=== PATIENT | female | born 1945 | race Caucasian/White ===

== ENCOUNTER 2020-04-13 12:36 | Outpatient (CLI) | payer MEDICARE, SELFPAY ==
--- NOTE | 2020-04-14 09:38 | WPDNEUROLOGY ---
Neurology EEG Report General Information Date of Study: 04/13/20 TEST eeg DIAGNOSIS memory loss CONDITION OF RECORDING awake and drowsy EEG NUMBER [id number] CLINICAL HISTORY memory loss EEG DESCRIPTION Basic resting occipital frequency consists of small amount of poorly organized low voltage 8 to 9 hertz per second alpha admixed with a large amount of low to medium voltage 6 to 7 hertz per second theta. During drowsiness low-voltage beta activity seen diffusely admixed with waxing and waning theta activity. multiple movement artifacts seen hyperventilation not done photic stimulation produced poorbuild up. non paroxysmal. Nonfocal. Nonlateralizing. IMPRESSION Abnormal record due to the presence of excessive amount of theta activity considering the age and the clinical symptomatology EEG abnormalities could be consistent with diagnosis of organic a metabolic encephalopathy or neuro degenerative process .clinical correlation recommended
== END 2020-04-13 12:37 | disposition home or self-care (01) ==
PROVIDERS: PCP Family Medicine; Visit Provider Psychiatry & Neurology Neurology
DX: R41.3 Other amnesia (principal); R94.01 Abnormal electroencephalogram [EEG]
CPT/HCPCS: 95816

== ENCOUNTER 2021-03-12 11:13 | Outpatient (CLI) | payer MEDICARE, SELFPAY ==
[2021-03-12 12:13] LABS: Alanine Aminotransferase 136 U/L (14-59); Albumin Level 3.9 g/dL (3.4-5.0); Alkaline Phosphatase 73 U/L (46-116); Anion Gap 9 mmol/L (8-16); Aspartate Amino Transferase 98 U/L (15-37); Bilirubin,Total 0.6 mg/dL (0.00-1.00); Blood Urea Nitrogen 8 mg/dL (7-18); Calcium 9.4 mg/dL (8.5-10.1); Carbon Dioxide 31 mmol/L (21-32); Chloride 103 mmol/L (98-108); Cholesterol 203 mg/dL (0-200); Estimated Glomerular Filt Rate > 60; Glucose 100 mg/dL (70-99); HDL Direct 44 mg/dL (40-60); LDL Cholesterol Calculated 126 mg/dL (<130); Osmolality Calculated 294 mOsm/kg (285-295); Potassium 4.5 mmol/L (3.5-5.1); Sodium 143 mmol/L (136-145); Total Protein 6.6 g/dL (6.4-8.2); Triglycerides 166 mg/dL (0-150)
== END 2021-03-12 11:14 | disposition home or self-care (01) ==
PROVIDERS: PCP Family Medicine; Visit Provider Family Medicine
DX: Z13.9 Encounter for screening, unspecified (principal); Z13.6 Encounter for screening for cardiovascular disorders; R94.6 Abnormal results of thyroid function studies
CPT/HCPCS: 36415; 80053; 80061; 84443

== ENCOUNTER 2021-11-28 13:34 | Outpatient (NON) | payer MEDICARE, SELFPAY ==
[2021-11-28 13:51] LABS: Add Urine Microscopic? YES; Appearance Urine Clear (Clear); Bilirubin Urine Negative (Negative); Blood Urine Negative (Negative); Color Urine Light Yellow (Yellow); Glucose Urine UA Negative (Negative); Ketones Urine Negative (Negative); Leukocyte Esterase Ur 3+ (Negative); Nitrate Urine Negative (Negative); Protein Urine Negative (Negative); Specific Grav Ur <= 1.005 (1.010-1.020); Urobilinogen Urine 0.2 mg/dL (0.2-1.0)
[2021-11-28 13:59] LABS: Bacteria Urine Trace /hpf; RBC Urine 0-2 /hpf (0-2); Squamous Epithelial Cell Urine Moderate /hpf (Few); WBC Urine 31-50 /hpf (0-3)
== END 2021-11-28 13:35 | disposition home or self-care (01) ==
LOC: CHSLAB 13:38
PROVIDERS: Visit Provider Family Medicine
DX: R39.9 Unspecified symptoms and signs involving the genitourinary system (principal)
CPT/HCPCS: 81001; 87086

== ENCOUNTER 2022-01-14 10:04 | Inpatient (IN) | payer MEDICARE, MEDICAID, SELFPAY ==
[2022-01-14] VITALS (23 sets, daily range): BP systolic 70–108; BP diastolic 43–79; PULSE 80–95; RESP 15–35; TEMP 36.6–36.8; O2SAT 90–99; BMI 29.0
--- NOTE | ~2022-01-14 | XR_ITS ---
XR chest 1V 01/14/2022 10:49 Indication: Weakness and hypotension Procedure: AP portable chest Comparison: No prior studies for comparison. Findings: Bibasilar airspace disease, consistent with pneumonia. Borderline heart size. Pacemaker michaela ds in expected position. Impression: 1: Bibasilar airspace disease, left greater than right, consistent with pneumonia. Reviewed, dictated and finalized at location A. Impression: 1: Bibasilar airspace disease, left greater than right, consistent with pneumon ia.
--- NOTE | ~2022-01-14 | XR_ITS ---
EXAMINATION: XR chest 1V portable Exam Date/Time: 01/15/2022 18:10 CDT HISTORY: decreasing oxygen saturation while on Airvo Comparison: 01/15/2022. CT abdomen pelvis 01/14/2022. RESULT: Lines, tubes, and devices: Left chest pacer with intact and stable leads. Lungs and pleura: Decreased groundglass opacities, unchanged reticular opacities, increased left ang le blunting. Cardiomediastinal silhouette: Stable. Other: No acute osseous or upper abdominal finding. IMPRESSION: Mild interstitial edema, slightly improved. Possible small left pleural effusion. Reviewed, dictated and finalized at location K. IMPRESSION: Mild interstitial edema, slightly improved. Possible small left pleural effusio n.
--- NOTE | ~2022-01-14 | XR_ITS ---
EXAMINATION: XR chest 1V portable DATE: 01/17/2022 06:07 INDICATION: Septic shock. Pneumonia. TECHNIQUE: frontal view of the chest was obtained. COMPARISON: Chest radiograph dated 01/16/2022 FINDINGS: Combination of diffuse mild increased interstitial pattern and hazy airspace opacities throughout bot h lungs. More dense retrocardiac consolidation in the left lower lung zone. Small bilateral pleural e ffusions. No pneumothorax. The cardiomediastinal silhouette is normal. Dual lead pacemaker seen with leads projecting over the expected locations of the right atrium and right ventricle. IMPRESSION: 1. Increasing interstitial and groundglass opacities throughout both lungs consistent with worsening mild pulmonary edema and small bilateral pleural effusions. 2. Patchy consolidation in the left lower lung zone which could represent atelectasis or pneumonia. Reviewed, dictated and finalized at location A. IMPRESSION: 1. Increasing interstitial and groundglass opacities throughout both lungs cons istent with worsening mild pulmonary edema and small bilateral pleural effusion s. 2. Patchy consolidation in the left lower lung zone which could represent atele ctasis or pneumonia.
--- NOTE | ~2022-01-14 | CT_ITS ---
EXAMINATION: CT brain wo con DATE: 01/14/2022 10:46 INDICATION: Slurred speech. Confusion. Hypertension. TECHNIQUE: Computed tomography (CT) of the head was performed without intravenous contrast. The dose- length product was 605.33 mGy-cm. Automated exposure control and iterative reconstruction technique w ere employed. COMPARISON: CT dated 08/09/2011 FINDINGS: Generalized atrophy. There are scattered mild periventricular and subcortical white matter changes, most likely related to small vessel ischemic disease (microangiopathy). No ventriculomegaly or midline shift. There is intracranial atherosclerosis. Paranasal sinuses and mastoids are pneumatiz ed. No depressed skull fractures. IMPRESSION: 1. No acute intracranial abnormality. 2: Chronic age-related findings. Reviewed, dictated and finalized at location A.
--- NOTE | ~2022-01-14 | CT_ITS ---
EXAMINATION: CT abdomen pelvis wo con DATE: 01/14/2022 12:52 INDICATION: Right-sided flank pain. TECHNIQUE: Computed tomography (CT) of the abdomen and pelvis was performed without intravenous contr ast. The dose-length product was 1134.49 mGy-cm. Automated exposure control and iterative reconstruct ion technique were employed. COMPARISON: CT dated 08/09/2011. FINDINGS: There is dependent atelectasis. Status post cholecystectomy. There is a 6 mm right UPJ ston e with moderate hydronephrosis. There is perinephric stranding. The liver, spleen, pancreas, adrenal glands and left kidney are unremarkable nonobstructive bowel pat tern. Study limited by motion artifact. There is pelvic relaxation. Colonic diverticulosis without ev idence for diverticulitis. Moderate lumbar spondylosis. Moderate lumbar spondylosis with levoscoliosi s. There is atherosclerosis of the aorta without aneurysm. No lymphadenopathy. IMPRESSION: 1. Right UPJ stone measuring 6 mm with moderate hydronephrosis. Reviewed, dictated and finalized at location A.
--- NOTE | ~2022-01-14 | XR_ITS ---
XR chest 1V portable 01/15/2022 08:36 Indication: Pulmonary edema Procedure: AP portable chest Comparison: Comparison to multiple prior studies sequentially, with oldest reviewed study dated 01/14. Findings: Mild cardiomegaly. Pacemaker leads in expected position. Interval progression of bilateral airspace disease, consistent with edema. No significant effusion or pneumothorax. Impression: 1: Interval progression of bilateral airspace disease, consistent with edema. Reviewed, dictated and finalized at location A. Impression: 1: Interval progression of bilateral airspace disease, consistent with edema.
--- NOTE | ~2022-01-14 | XR_ITS ---
EXAMINATION: XR retrograde pyelo w/stent RT DATE: 01/14/2022 16:00 CDT INDICATION: RETROGRADE W/ RIGHT STENT PLACEMENT . TECHNIQUE: 15 fluoroscopic images, including one cine clip of the right abdomen were obtained during retrograde pyelography with stent placement performed by the surgeon. I was not present in the operat ing room. Fluoroscopy exposure time was 30.8 seconds. Cumulative dose was 0.68306 mGy squared. COMPARISON: CT abdomen and pelvis 01/14/2022. FINDINGS: Right renal UPJ stone likely visualized adjacent to L3. Cannulation and contrast injection into the r ight collecting system, mildly dilated proximally. Cholecystectomy clips. Right femoral central line. Multiple phleboliths. IMPRESSION: Fluoroscopic documentation of right retrograde pyelography with stent placement. Please refer to the operative note for complete procedural details . Reviewed, dictated and finalized at location K. IMPRESSION: Fluoroscopic documentation of right retrograde pyelography with stent placement . Please refer to the operative note for complete procedural details .
--- NOTE | ~2022-01-14 | XR_ITS ---
EXAMINATION: XR chest 1V Exam Date/Time: 01/14/2022 14:50 CDT HISTORY: central line attempt UNSUCCESSFUL Comparison: Same date at 10:45 AM. RESULT: Lines, tubes, and devices: Left chest pacer with intact leads. Cholecystectomy clips. Lungs and pleura: Worsening bilateral reticular opacities, greater in the right lung. Streaky and siddiqui bsegmental patchy opacities in the lung bases. Minimal bilateral angle blunting. Cardiomediastinal silhouette: Stable cardiomediastinal silhouette. Other: No acute osseous or upper abdominal finding. IMPRESSION: No pneumothorax. Interstitial edema. Minimal bibasilar atelectasis/consolidation. Possible trace bila teral pleural effusions. Reviewed, dictated and finalized at location K. IMPRESSION: No pneumothorax. Interstitial edema. Minimal bibasilar atelectasis/consolidatio n. Possible trace bilateral pleural effusions.
--- NOTE | ~2022-01-14 | XR_ITS ---
EXAMINATION: XR abdomen/kub 1V INDICATION: Right kidney stone TECHNIQUE: Supine views of the abdomen were obtained on 2 radiographs. COMPARISON: None FINDINGS: A right internal ureteral stent is present in expected position. A 3 mm stone is present ad jacent to the proximal aspect of the stent at the level of the right L3 transverse process. There are multiple phleboliths of the pelvis. Some pelvic calcifications project over the distal aspect of the stent. The bowel gas pattern is normal. Surgical clips in the right upper quadrant are likely from p rior cholecystectomy. IMPRESSION: 1. Right internal ureteral stent in expected position with 3 mm stone projecting adjacent to the prox imal stent. Pelvic calcifications projecting over the distal stent likely reflect phleboliths. Reviewed, dictated and finalized at location L. IMPRESSION: 1. Right internal ureteral stent in expected position with 3 mm stone projectin g adjacent to the proximal stent. Pelvic calcifications projecting over the dis keren stent likely reflect phleboliths.
--- NOTE | ~2022-01-14 | XR_ITS ---
EXAMINATION: XR chest 1V portable DATE: 01/16/2022 08:04 INDICATION: Pulmonary edema TECHNIQUE: frontal view of the chest was obtained. COMPARISON: Chest radiograph dated 01/15/2022 FINDINGS: Small lung volumes. Interstitial and airspace opacities in the bilateral mid and lower lung zones. Sm all bilateral pleural effusions. No pneumothorax. The cardiomediastinal silhouette is normal. Calcifi ed left hilar lymph nodes consistent with old granulomatous disease. Dual lead pacemaker seen with le ads projecting over the expected locations of the right atrium and right ventricle. IMPRESSION: 1. Interstitial and airspace opacities in bilateral mid and lower lung zones with differential includ ing pulmonary edema or pneumonia. 2. Small bilateral pleural effusions with associated basilar atelectasis. Reviewed, dictated and finalized at location A. IMPRESSION: 1. Interstitial and airspace opacities in bilateral mid and lower lung zones wi th differential including pulmonary edema or pneumonia. 2. Small bilateral pleural effusions with associated basilar atelectasis.
--- NOTE | ~2022-01-14 | XR_ITS ---
EXAMINATION: XR chest 1V portable Exam Date/Time: 01/14/2022 18:00 CDT HISTORY: tachypnea Comparison: Same date at 2:56 PM. RESULT: Lines, tubes, and devices: Stable pacer and leads. Lungs and pleura: Unchanged reticular, subsegmental bibasilar, and costophrenic angle opacities. Cardiomediastinal silhouette: Stable. Other: No acute osseous or upper abdominal finding. IMPRESSION: Interstitial edema. Bibasilar atelectasis/consolidation. Possible bilateral effusions. No significant interval change. Reviewed, dictated and finalized at location K. IMPRESSION: Interstitial edema. Bibasilar atelectasis/consolidation. Possible bilateral eff usions. No significant interval change.
--- NOTE | 2022-01-14 10:30 | ECG_ITS ---
Measurements Intervals [place] Rate: 86 P: 56 IN: 140 QRS: -3 QRSD: 94 T: 34 QT: 390 QTc: 468 Interpretive Statements SINUS RHYTHM INCOMPLETE RIGHT BUNDLE BRANCH BLOCK BORDERLINE T WAVE ABNORMALITY- INFERIOR LEADS BORDERLINE ECG Electronically Signed On 01-14-2022 17:00:14 CDT by Tee Lewis D.O.
--- NOTE | 2022-01-14 10:39 | ED.GENADULT ---
HPI - General Adult General Chief complaint: Unspecified Stated complaint: unwell x days, low bp, dry, worsening dementia Time Seen by Provider: 01/14/22 10:05 Source: patient, family and RN notes reviewed Mode of arrival: EMS Limitations: altered mental status and dementia History of Present Illness HPI narrative: This is a 76 year old female with history of dementia, sick sinus syndrome and thyroid disease who presents from an assisted living facility for low blood pressure. EMS states patient's BP was 70/40, and she appears dehydrated. It is also reported that patient was ambulatory. Patient is alert oriented to person and place. She is unsure of why she is in ER. Her family states they were told that patient was having flank pain 2 days ago, and nursing staff asked for pain medication at that time. They were not aware patient was lethargic until today. Her daughter in law reports patient's last known normal was last night. She states she is having new slurred speech. Patient has not been vomiting. She is complaining of chest pain, sob, cough or fever at this time. EMS started patient on IVF and she had improvement in her blood pressure . Related Data Home Medications Medication Instructions Recorded Confirmed buspirone 7.5 mg tablet 7.5 mg PO DAILY 01/14/22 01/14/22 escitalopram oxalate 20 mg tablet 20 mg PO DAILY 01/14/22 01/14/22 levothyroxine 100 mcg tablet 100 mcg PO DAILY 01/14/22 01/14/22 metoprolol succinate 50 mg 50 mg PO DAILY 01/14/22 01/14/22 tablet,extended release 24 hr omega-3 fatty acids 1 cap PO DAILY 01/14/22 01/14/22 Allergies Allergy/AdvReac Type Severity Reaction Status Date / Time meperidine Allergy Severe BP DROP Verified 01/14/22 12:00 HYPER-REACTIVE TO ALL Allergy Severe Unknown Uncoded 01/14/22 12:00 MEDS--EXACERBATED AFFECTS MEPERIDINE HCL Allergy Unknown Unknown Uncoded 01/14/22 12:00 Review of Systems Review of Systems: ROS unobtainable: Yes unobtainable due to mental status PMFSH Past Medical History Medical History Dementia Diverticulitis Fatty liver Herpes zoster Hypertension Hypothyroidism Septic shock Syncope, vasovagal Surgical History Surgical History Hx of cholecystectomy Social History Social History Smoking status: Never smoker Spiritual care concerns: No Exam Const: General: ill appearing and lethargic Nutritional Appearance: average body habitus Orientation/consciousness: oriented to person, oriented to place and lethargic Limitations: altered mental status HENMT: Head: normocephalic and atraumatic Face and sinus: face symmetric Mouth: Yes lip normal, Yes tongue normal and Yes dry mucous membranes Eyes: General: appearance normal, both eyes and all related structures Pupils: Equal, round and reactive pupils present EOM: EOMs intact bilaterally Chest: Chest palpation & inspection: normal inspection of the chest Resp: Effort & Inspection: normal respiratory effort Auscultation: clear to auscultation bilaterally Cardio: Jugular venous distension: no JVD Rate: regular rate Rhythm: regular rhythm GI: GI Palp: Yes Soft to palpation, No Tenderness to palpation present (GI), No Guarding due to palpation present (GI), No Rigid due to palpation and No No hepatosplenomegaly present Auscultation: normal bowel sounds : General: Yes no CVA tenderness Back/Spine/Pelvis: Back: no CVA tenderness Skin: General skin exam: normal color and no rashes or lesions noted Neuro: General: oriented to person, oriented to place and moves all extremities Cranial nerves: Yes CN's II-XII intact bilaterally Speech: Other speech findings present (Neuro) (mild slurred speech) Psych: Appearance: grossly normal Course Reevaluation(s) Reevaluation #1: Patient's family is
[2022-01-14 10:56] LABS: Glucose Point of Care 139 mg/dl (65-105)
--- NOTE | 2022-01-14 11:10 | PC.NURSE ---
REPORT RECEIVED FROM MYA Lechuga RN. CARE ASSUMED.
[2022-01-14 11:36] LABS: Basophils Absolute Auto 0.1 K/mm3 (0.0-0.1); Basophils Percent Auto 0.4 % (0.2-1.2); Hematocrit 38.1 % (37.0-47.0); Hemoglobin 12.6 g/dL (12.0-15.0); Immature Granulocyte Absolute 1.07 K/mm3 (0.00-0.031); Immature Granulocyte Percent A 3.8 % (0-0.5); Immature Platelet Fraction Pct 7.3 % (0.9-11.2); Lymphocytes Percent Auto 3.9 % (18.3-44.2); Mean Corpuscular HGB Conc 33.1 g/dl (32-36); Mean Corpuscular Hemoglobin 31.8 pg (26-34); Mean Corpuscular Volume 96.2 fl (80-100); Monocytes Absolute Auto 1.3 K/mm3 (0.1-0.6); Monocytes Percent Auto 4.7 % (2.6-8.5); Neutrophils Absolute Auto 24.3 K/mm3 (1.3-6.7); Neutrophils Percent Auto 87.2 % (45.5-73.1); Platelet Count Result 110 k/mm3 (150-375); Red Blood Count 3.96 M/mm3 (4.2-5.4); White Blood Count 27.9 K/mm3 (4.5-10.0)
[2022-01-14 11:43] LABS: Lactic Acid Reflex 5.4 mmol/L (0.7-2.0)
[2022-01-14 11:45] LABS: Albumin Level 2.7 g/dL (3.5-5.1); Alkaline Phosphatase 57 U/L (38-126); Anion Gap 11 mmol/L (8-16); Aspartate Amino Transferase 45 U/L (14-36); Bilirubin,Total 0.7 mg/dL (0.2-1.3); Blood Urea Nitrogen 9 mg/dL (7-17); CRP 3.8 mg/dL (<1.0); Calcium 8.5 mg/dL (8.4-10.2); Carbon Dioxide 17 mmol/L (22-30); Chloride 101 mmol/L (98-107); Estimated Glomerular Filt Rate 44; Glucose 117 mg/dL (65-110); Lipase 66 U/L (23-300); Potassium 3.4 mmol/L (3.4-5.0); Sodium 129 mmol/L (137-145)
[2022-01-14 11:51] LABS: Alanine Aminotransferase 50 U/L (6-35)
[2022-01-14 11:53] LABS: Troponin I < 0.012 ng/mL (0.000-0.034)
--- NOTE | 2022-01-14 12:00 | PC.NURSE ---
UNABLE TO OBTAIN SECOND SET OF BLOOD CULTURES. DR VENEGAS AWARE AND OK WITH JUST HAVING THE 1ST SET.
[2022-01-14 12:01] LABS: INR 2.4; Prothrombin Time 25.3 Seconds (11.1-14.7)
[2022-01-14 12:02] LABS: Partial Thromboplastin Time 44.3 SECONDS (22.3-36.8)
[2022-01-14 12:04] LABS: Appearance Urine Clear (Clear); Bilirubin Urine Negative (Negative); Blood Urine Negative (Negative); Color Urine Yellow (Yellow); Glucose Urine UA Negative (Negative); Ketones Urine Negative (Negative); Leukocyte Esterase Ur Trace LEU/UL (Negative); Nitrate Urine Positive (Negative); Protein Urine Negative (Negative); Urobilinogen Urine 0.2 mg/dL (<2.0)
[2022-01-14 12:18] LABS: Bacteria Urine Trace /hpf; Mucus Urine Rare /lpf; RBC Urine 0-2 /hpf (0-2)
[2022-01-14 12:20] LABS: Add Urine Microscopic? YES
[2022-01-14 12:38] LABS: SARS-CoV-2 RNA PCR Negative
[2022-01-14] MEDS: SODIUM CHLORIDE 0.9% IV 1,000 ML 999 ML IV CONT (12:58)
--- NOTE | 2022-01-14 14:22 | PM.IMHP ---
H&P: HPI History of Present Illness Date/Time: 01/14/22 1330 Chief Complaint: Unwell with low BP Narrative: This 76 year old female patient with significant PMH of SSS, Dementia, hypothyroidism, and fatty liver who resides at a memory care facility is brought via EMS to the ER after being found with a low BP of 70s/40s. It is difficult to obtain a history from the patient secondary to her level of dementia. She cannot answer any orientation questions for me with exception of her name. The family believed that she had been complaining of flank pain as told to the ER provider. They were not at the bedside when I examined patient. On arrival to the ER, workup was started and was significant for hypotension despite 3L bolus of NS, white blood cell count of 20 7.9 oz with absolute neutrophils of 24.3, lactic acid of 5.4, CRP of 3.8, sodium of 129, renal function with a creatinine of 1.2 baseline known to be 0.6, AST of 45, ALT of 50 and urinalysis showing leukocytes and nitrates. CXR demonstrated bibasilar airspace disease L>R, consistent with PNA. CT of head with age related changes only, and CT abdomen and pelvis demonstrated Right sided UPJ stone measuring 6 mm with moderate Hydronephrosis. The emergency room physician spoke with Urology, Dr. Wu who will be taking the patient to its the operating room in light of having a stone in the setting of acute sepsis and septic shock. After operating room patient will be placed in intensive care unit for further monitoring. Patient has been dosed with Rocephin, vancomycin with pharmacy to dose, and Zithromax and is currently on the norepinephrine drip for pressure support. Surgical risk score: 0 class 1 risk with a 3.9% risk of , MT or cardiac arrest in 30 days. Review of Systems Review of Systems: ROS unobtainable: Yes unobtainable due to mental status PMFSH Past Medical History Medical History Diverticulitis Fatty liver Herpes zoster Hypertension Hypothyroidism Syncope, vasovagal Surgical History Surgical History Hx of cholecystectomy Social History Social History Smoking status: Never smoker Meds Home Medications and Allergies Allergies Allergy/AdvReac Type Severity Reaction Status Date / Time meperidine Allergy Severe BP DROP Verified 01/14/22 12:00 HYPER-REACTIVE TO ALL Allergy Severe Unknown Uncoded 01/14/22 12:00 MEDS--EXACERBATED AFFECTS MEPERIDINE HCL Allergy Unknown Unknown Uncoded 01/14/22 12:00 Vital Signs Vital Signs - 24 hr 01/14/22 10:07 01/14/22 10:12 01/14/22 11:00 Temperature 98.1 F Pulse Rate 87 93 Respiratory Rate 18 Blood Pressure 108/79 104/58 L Pulse Oximetry 95 Oxygen Delivery Room Air 01/14/22 11:50 01/14/22 12:03 01/14/22 13:01 Temperature Pulse Rate 92 89 89 Respiratory Rate 18 29 H 29 H Blood Pressure 98/51 L 94/45 L 89/52 L Pulse Oximetry 98 97 98 Oxygen Delivery 01/14/22 13:02 Temperature Pulse Rate 89 Respiratory Rate 33 H Blood Pressure Pulse Oximetry 95 Oxygen Delivery Exam Const: General: uncomfortable Other: Elderly female lying supine in bed at this time in Trendelenburg position, appears uncomfortable. HENMT: Mouth: Yes dry mucous membranes Eyes: General: appearance normal, both eyes and all related structures Sclera: sclerae normal Pupils: Equal, round and reactive pupils present EOM: EOM not intact bilaterally (Does not follow commands) Neck: Neck: supple and no JVD Lymphatic: lymphadenopathy not noted Chest: Other: Does not appear tender to palpation. Resp: Effort & Inspection: abnormal respiratory effort (Decreased, does not follow commands well.) Auscultation: diminished lung sounds bilateral throughout (Secondary to decreased effort.) Other: Patient is noted to be tachypneic br
[2022-01-14 14:30] LABS: Reflex Lactic Acid Yes or No Add Lactic
[2022-01-14] MEDS: NOREPINEPHRINE 8 MG/D5W 250 ML 8 MG/250 ML BAG 9.38 MG IV CONT (15:11)
--- NOTE | 2022-01-14 15:40 | WPDURCON ---
Assessment and Plan Assessment and plan (1) Right ureteral stone: Code(s): N20.1 - Calculus of ureter Status: Acute (2) Pyelonephritis: Code(s): N12 - Tubulo-interstitial nephritis, not specified as acute or chronic Status: Acute Urology Consult Note HPI Date Seen: 01/14/22 Requesting Physician: Charles Wu MD Primary Care Provider: Stephanie Rosenthal, Consult Narrative Narrative: Catherine Gagnon is a 76 year old female, previously unknown to our practice, who presents to the emergency department with underlying dementia with worsening mental status and hypotension. Evaluation demonstrated a picture of septic shock. Imaging revealed an obstructing 6 mm right proximal ureteral stone and her urine appeared infected. She has a presents to obstructive pyelonephritis leading to urosepsis. In light of that we will make arrangements for emergent cystoscopy with right ureteral stent placement. The ER staff and anesthesia room is available for monitoring and hemodynamic stabilization. Review of Systems Review of Systems: ROS unobtainable: Yes unobtainable due to mental status PMFSH Past Medical History Medical History Diverticulitis Fatty liver Herpes zoster Hypertension Hypothyroidism Syncope, vasovagal Surgical History Surgical History Hx of cholecystectomy Social History Social History Smoking status: Never smoker Meds Home Medications and Allergies Allergies Allergy/AdvReac Type Severity Reaction Status Date / Time meperidine Allergy Severe BP DROP Verified 01/14/22 12:00 HYPER-REACTIVE TO ALL Allergy Severe Unknown Uncoded 01/14/22 12:00 MEDS--EXACERBATED AFFECTS MEPERIDINE HCL Allergy Unknown Unknown Uncoded 01/14/22 12:00 Vital Signs Vital Signs - 24 hr 01/14/22 10:07 01/14/22 10:12 01/14/22 11:00 Temperature 98.1 F Pulse Rate 87 93 Respiratory Rate 18 Blood Pressure 108/79 104/58 L Pulse Oximetry 95 Oxygen Delivery Room Air 01/14/22 11:50 01/14/22 12:03 01/14/22 13:01 Temperature Pulse Rate 92 89 89 Respiratory Rate 18 29 H 29 H Blood Pressure 98/51 L 94/45 L 89/52 L Pulse Oximetry 98 97 98 Oxygen Delivery 01/14/22 13:02 01/14/22 13:26 01/14/22 14:00 Temperature Pulse Rate 89 91 84 Respiratory Rate 33 H 27 H 20 Blood Pressure 101/52 L 82/52 L Pulse Oximetry 95 97 99 Oxygen Delivery 01/14/22 14:30 01/14/22 15:11 01/14/22 15:00 Temperature Pulse Rate 84 80 81 Respiratory Rate 20 26 H Blood Pressure 88/60 L 87/51 L 87/51 L Pulse Oximetry 99 96 Oxygen Delivery Exam Const: General: no acute distress Resp: Effort & Inspection: normal respiratory effort GI: Inspection: non-distended GI Palp: No abdominal tenderness and No Guarding due to palpation present (GI) Auscultation: normal bowel sounds Results Labs CBC & Chem 7: 01/14/22 11:22 01/14/22 11:22 Labs: Short CBC 01/14/22 Range/Units 11:22 WBC 27.9 H (4.5-10.0) K/mm3 Hgb 12.6 (12.0-15.0) g/dL Hct 38.1 (37.0-47.0) % Plt Count 110 L (150-375) k/mm3 BMP 01/14/22 11:22 Sodium 129 L Potassium 3.4 Chloride 101 Carbon Dioxide 17 L BUN 9 Creatinine 1.20 H Glucose 117 H Calcium 8.5 Cardiac Enzymes 01/14/22 Range/Units 11:22 Troponin I < 0.012 (0.000-0.034) ng/mL Liver Function 01/14/22 Range/Units 11:22 Total Bilirubin 0.7 (0.2-1.3) mg/dL AST 45 H (14-36) U/L ALT 50 H (6-35) U/L Alkaline Phosphatase 57 (38-126) U/L Albumin 2.7 L (3.5-5.1) g/dL Urine 01/14/22 Range/Units 11:44 Urine Color Yellow (Yellow) Urine Appearance Clear (Clear) Urine pH 7.0 (5.0-9.0) Ur Specific [place] 1.010 (1.001-1.035) Urine Protein Negati
--- NOTE | 2022-01-14 15:44 | WPDANESEPPF ---
Anes - Initial Pre Proc Eval Procedure: Operation Date: 01/14/22 15:00 Proposed Procedures p Cysto, RPG, Stone Ext, Stent Placement(Right) - Charles uW MD Date/Time: 01/14/22 15:44 Surgeon: Charles Wu MD Pre Op Diagnosis: unwell x days, low bp, dry, worsening dementia Patient Data Age: 76 Gender: F Height: 1.6 m Weight: 77.2 kg Last Vital Signs Temp 36.7 C 01/14/22 10:07 Pulse 80 01/14/22 15:11 Resp 26 H 01/14/22 15:00 BP 87/51 L 01/14/22 15:11 Pulse Ox 96 01/14/22 15:00 O2 Del Method Room Air 01/14/22 10:07 Allergies Allergy/AdvReac Type Severity Reaction Status Date / Time meperidine Allergy Severe BP DROP Verified 01/14/22 12:00 HYPER-REACTIVE TO ALL Allergy Severe Unknown Uncoded 01/14/22 12:00 MEDS--EXACERBATED AFFECTS MEPERIDINE HCL Allergy Unknown Unknown Uncoded 01/14/22 12:00 Laboratory Tests 01/14/22 01/14/22 01/14/22 10:53 11:22 11:22 WBC 27.9 K/mm3 H K/mm3 (4.5-10.0) RBC 3.96 M/mm3 L M/mm3 (4.2-5.4) Hgb 12.6 g/dL g/dL (12.0-15.0) Hct 38.1 % % (37.0-47.0) MCV 96.2 fl fl (80-100) MCH 31.8 pg pg (26-34) MCHC 33.1 g/dl g/dl (32-36) RDW 12.0 % % (11.5-14.5) Plt Count 110 k/mm3 L k/mm3 (150-375) MPV 11.0 fl H fl (7.4-10.4) Immature Gran % (Auto) 3.8 % H % (0-0.5) Neut % (Auto) 87.2 % H % (45.5-73.1) Lymph % (Auto) 3.9 % L % (18.3-44.2) [place] % (Auto) 4.7 % % (2.6-8.5) Eos % (Auto) 0.0 % % (0-4.4) Baso % (Auto) 0.4 % % (0.2-1.2) Lymph # (Auto) 1.10 K/mm3 K/mm3 (0.9-3.2) [place] # (Auto) 1.3 K/mm3 H K/mm3 (0.1-0.6) Eos # (Auto) 0.0 K/mm3 K/mm3 (0-0.3) Baso # (Auto) 0.1 K/mm3 K/mm3 (0.0-0.1) Abs Immat Gran (auto) 1.07 K/mm3 H K/mm3 (0.00-0.031) Absolute Neuts (auto) 24.3 K/mm3 H K/mm3 (1.3-6.7) Absolute Nucleated RBC 0.0 K/mm3 K/mm3 (0.0-0.012) Nucleated RBC % 0.0 % % (0.0-0.2) % Immature Plt Fraction 7.3 % % (0.9-11.2) PT INR APTT Sodium 129 mmol/L L mmol/L (137-145) Potassium 3.4 mmol/L mmol/L (3.4-5.0) Chloride 101 mmol/L mmol/L (98-107) Carbon Dioxide 17 mmol/L L mmol/L (22-30) Anion Gap 11 mmol/L mmol/L (8-16) BUN 9 mg/dL mg/dL (7-17) Creatinine 1.20 mg/dL H mg/dL (0.7-1.0) Estim Creat Clear Calc Not Reportable Estimated GFR 44 L (59 - ) Glucose 117 mg/dL H mg/dL (65-110) POC Capillary Glucose 139 mg/dl H mg/dl (65-105) Lactic Acid Calcium 8.5 mg/dL mg/dL (8.4-10.2) Total Bilirubin 0.7 mg/dL mg/dL (0.2-1.3) AST 45 U/L H U/L (14-36) ALT 50 U/L H U/L (6-35) Alkaline Phosphatase 57 U/L U/L (38-126) Troponin I < 0.012 ng/mL ng/mL (0.000-0.034) C-Reactive Protein 3.8 mg/dL H mg/dL (<1.0) Total Protein 5.0 g/dL L g/dL (6.3-8.2) Albumin 2.7 g/dL L g/dL (3.5-5.1) Lipase 66 U/L U/L (23-300) Urine Color Urine Appearance Urine pH Ur Specific [place] Urine Protein Urine Glucose (UA) Urine Ketones Ur Blood (Man) Urine Nitrate Urine Bilirubin Urine Urobilinogen Leukocyte Esterase Rfl Urine RBC Urine WBC Urine Bacteria Urine Mucus SARS-CoV-2 RNA (RT-PCR) 01/14/22 01/14/22 01/14/22 11:22 11:22 11:44 WBC RBC Hgb Hct MCV MCH MCHC RDW Plt Count MPV
[2022-01-14] MEDS: MIDAZOLAM HCL (*CRX) 2 MG/2 ML VIAL IV PUSH (15:45)
--- NOTE | 2022-01-14 16:17 | W.PM.PROC2 ---
Procedure Note - Detailed Date of Procedure 01/14/22 Pre-op Diagnosis Obstructing right proximal ureteral stone with obstructive pyelonephritis and septic shock Post-op Diagnosis Same Procedure Performed Cystoscopy, right retrograde pyelography and right ureteral stent placement Surgeon Charles Wu MD Description of Procedure Patient is brought the op suite where she was prepped draped in routine sterile fashion while in a frog-leg position. Light systemic sedation is administered per the anesthesia department. Cystoscopy is undertaken with a 16 F flexible cystoscope. A 0.035 in glidewire was advanced in the right renal pelvis under fluoroscopy and the angiographic catheter was used to obtain a retrograde pyelogram and outlined the collecting system. A 6 F variable length stent is positioned with the proximal coil in the upper pole calyx and distal coil in the bladder. The scope was removed a 16 F urethral catheter was placed. Patient tolerated procedure well was taken recovery room good condition. Drains Yes Packing Yes Complications No immediate complications Disposition PACU
--- NOTE | 2022-01-14 17:21 | ADMGEN ---
This patient, Catherine Gagnon, was admitted to Intensive Care [id number]. Patient/family oriented to hospital policies and general routines including ID bracelet, bed and alarms, visiting hours, pain management, procedures, bathroom and other care routines, personal items, smoking policy, room service/diet, and visiting hours. Information on how to activate the Rapid Response Team has been discussed. Patient/Family are encouraged to report perceived risks to care and to ask questions if they do not understand what they are told or what they should do.
[2022-01-14 18:28] LABS: Alveolar/Arterial O2 Gradient 166.1 mmHg; Base Excess ABG -10.6 mEq/l (+/-2.0); Fractional Inspired Oxygen 40 %; HCO3 ABG 13.1 mEq/l (22.0-26.0); Oxygen Content ABG 18.5 %vol (16.0-22.0); Oxygen Saturation ABG 96.8 % (95.0-100.0); Oxyhemoglobin 95.2 % THb (90.0-100.0); PCO2 ABG 24.2 mmHg (35.0-45.0); PO2 ABG 91.3 mmHg (80.0-100.0); PO2 FiO2 Ratio Arterial Blood 2.28 %; Total Hemoglobin 13.8 g/dL (12.0-18.0)
[2022-01-14 18:29] LABS: Device SIMPLE MASK; Modified Allen's Test Pass; Site Drawn LEFT RADIAL
[2022-01-14] MEDS: SODIUM CHLORIDE 0.9% IV 1,000 ML 100 ML IV CONT (18:59)
[2022-01-14 19:36] LABS: Lactic Acid 5.6 mmol/L (0.7-2.0)
[2022-01-14] MEDS: hetaSTARCH 6%/NACL 500 ML 250 ML IV CONT (21:08)
[2022-01-14] MEDS: LORazepam INJ (*CRX) 2 MG/ML VIAL 0.5 MG IV PUSH (21:09)
[2022-01-14] MEDS: dexmedeTOMIDine 400 MCG/100 ML 400 MCG/100 ML BAG IV CONT (22:35)
[2022-01-14 23:45] LABS: Glucose Point of Care 106 mg/dl (65-105)
[2022-01-15] VITALS (104 sets, daily range): BP systolic 70–167; BP diastolic 45–140; PULSE 62–166; RESP 19–40; TEMP 36.2–37.1; O2SAT 88–99
[2022-01-15 00:18] LABS: Lactic Acid Reflex 5.4 mmol/L (0.7-2.0)
[2022-01-15 02:59] LABS: Reflex Lactic Acid Yes or No Add Lactic
[2022-01-15 06:01] LABS: Hematocrit 38.4 % (37.0-47.0); Hemoglobin 13.1 g/dL (12.0-15.0); Immature Platelet Fraction Pct 10.4 % (0.9-11.2); Mean Corpuscular HGB Conc 34.1 g/dl (32-36); Mean Corpuscular Hemoglobin 32.2 pg (26-34); Mean Corpuscular Volume 94.3 fl (80-100); Mean Platelet Volume 11.5 fl (7.4-10.4); Platelet Count Result 103 k/mm3 (150-375); Red Blood Count 4.07 M/mm3 (4.2-5.4); Red Cell Distribution Width 12.4 % (11.5-14.5); White Blood Count 47.3 K/mm3 (4.5-10.0)
[2022-01-15 06:13] LABS: Alanine Aminotransferase 37 U/L (6-35); Albumin Level 2.4 g/dL (3.5-5.1); Alkaline Phosphatase 63 U/L (38-126); Anion Gap 10 mmol/L (8-16); Aspartate Amino Transferase 42 U/L (14-36); Bilirubin,Total 0.8 mg/dL (0.2-1.3); Blood Urea Nitrogen 17 mg/dL (7-17); Carbon Dioxide 17 mmol/L (22-30); Chloride 103 mmol/L (98-107); Estimated CRCL calculation 32 ml/min; Estimated Glomerular Filt Rate 40; Glucose 129 mg/dL (65-110); Potassium 4.4 mmol/L (3.4-5.0); Sodium 130 mmol/L (137-145)
[2022-01-15] MEDS: SODIUM CHLORIDE 0.9% IV 1,000 ML 100 ML IV CONT (06:21)
[2022-01-15 07:32] LABS: Band Neutrophils Percent 26 % (0-6); Lymphocytes Absolute Manual 1.41 K/mm3 (1.1-4.5); Metamyelocytes Percent 10 %; Monocytes Absolute Manual 0.94 K/mm3 (0.1-0.90); Monocytes Percent Manual 2 % (3-9); Neutrophils Percent Manual 59 % (46-73); Total Cells Counted 100
[2022-01-15 07:33] LABS: Platelet Estimate Decreased (Adequate); Smudge Cells PRESENT
[2022-01-15 07:34] LABS: Burr Cells 1+ (NORMAL)
--- NOTE | 2022-01-15 07:59 | WPDCNINT ---
Assessment and Plan Assessment and plan (1) Septic shock: Code(s): A41.9 - Sepsis, unspecified organism; R65.21 - Severe sepsis with septic shock Status: Acute Assessment and Plan: Patient presented with altered mental status, hypotension, lethargy. Likely related to acute pyelonephritis -01/14/2022: CT scan of the abdomen: Right UPJ stone measuring 6 mm with moderate hydronephrosis. -urology took the patient to the OR for cystoscopy, right retrograde pyelography and right ureteral stent placement -switch the antibiotics to imipenem and vancomycin -patient currently on Levophed, will maintain MAP > 70 mmHg for adequate end organ and renal perfusion -blood and urine cultures have been obtained and pending -lactic acid is elevated, will recheck later today -will give albumin - (2) Pyelonephritis: Code(s): N12 - Tubulo-interstitial nephritis, not specified as acute or chronic Status: Acute Assessment and Plan: 01/14/2022 status post cystoscopy, right retrograde pyelography and right ureteral stent placement -continue antibiotics as above Cultures pending (3) Right ureteral stone: Code(s): N20.1 - Calculus of ureter Status: Acute Assessment and Plan: As above (4) Acute kidney injury: Code(s): N17.9 - Acute kidney failure, unspecified Status: Acute Assessment and Plan: Acute kidney injury likely related to pyelonephritis, septic shock, hypovolemia -patient received significant amount of IV fluids, chest x-ray shows pulmonary edema, will diurese with Lasix 20 mg IV x1 -will switch to bicarb maintenance fluids -continue to monitor urine output, renal function and electrolytes (5) Pneumonia: Code(s): J18.9 - Pneumonia, unspecified organism Status: Acute Assessment and Plan: Pneumonia versus pulmonary edema -continue antibiotics as above -01/15 chest x-ray: Interval progression of bilateral airspace disease, consistent with edema. (6) Hypothyroidism: Code(s): E03.9 - Hypothyroidism, unspecified Status: Acute Assessment and Plan: Continue levothyroxine (7) Dementia: Code(s): F03.90 - Unspecified dementia without behavioral disturbance Status: Acute Assessment and Plan: Continue Abilify, BuSpar, Lexapro Plan Will repeat lactic acid Lasix 20 mg IV x1 Sodium bicarb infusion Additional Plan DVT prophylaxis: Heparin Nutrition: NPO for now Code status: Do not resuscitate Critical care time spent: 46 minutes This dictation may have been done utilizing a voice recognition system. Attempts have been made to correct errors. However, there may be uncorrected grammatical, spelling, and recognition errors present. Due to a high probability of clinically significant, life threatening deterioration, the patient required my highest level of preparedness to intervene emergently and I personally spent this critical care time directly and personally managing the patient. This critical care time included obtaining a history; examining the patient; pulse oximetry; ordering and review of studies; arranging urgent treatment with development of a management plan; evaluation of patient's response to treatment; frequent reassessment; and discussions with other providers. It was exclusive of separately billable procedures and treating other patients and teaching time. Please see Assessment and Plan section and the rest of the note for further information on patient assessment and treatment Engineering Patternmaker Consult Note Consult date: 01/15/22 Reason for consult: Septic shock, right proximal ureteral stone with obstructive pyelonephritis HPI: Catherine Gagnon is a 76 year old female with past medical history of diverticulitis, fatty liver, herpes zoster, essential hypertension, hypothyroidism, syncope, dementia presented the ED from the shelter with complains of hypotension, worsening dementia, altered mental status been
[2022-01-15] MEDS: SODIUM BICARBONATE 8.4% 150 MEQ in DEXTROSE 5% 1,000 ML 950 ML 75 MEQ IV CONT ×2 (08:22→23:49)
[2022-01-15] MEDS: FUROSEMIDE INJ 40 MG/4 ML VIAL 20 MG IV PUSH (09:25)
[2022-01-15] MEDS: HEPARIN SODIUM 5,000 UNITS/ML VIAL 5000 UNITS SUB-Q ×2 (09:40→20:51)
--- NOTE | 2022-01-15 11:27 | ECG_ITS ---
Measurements Intervals [place] Rate: 157 P: [place]: 0 QRS: -4 QRSD: 87 T: -37 QT: 283 QTc: 457 Interpretive Statements ATRIAL FIBRILLATION WITH RAPID VENTRICULAR RESPONSE NONSPECIFIC ST & T-WAVE ABNORMALITY- DIFFUSE LEADS BASELINE ARTIFACT- I, II, III, AVR, AVL, AVF, V1-V6 ABNORMAL ECG Electronically Signed On 01-15-2022 14:15:55 CDT by Tee Lewis D.O.
[2022-01-15] MEDS: AMIODARONE 150 MG/D5W 100 ML 150 MG/100 ML BAG 600 MG IV CONT (11:35)
[2022-01-15] MEDS: AMIODARONE 360 MG/D5W 200 ML 360 MG/200 ML BAG 33.33 MG IV CONT (11:49)
[2022-01-15 12:04] LABS: Lactic Acid Reflex 3.9 mmol/L (0.7-2.0)
[2022-01-15 12:05] LABS: Anion Gap 8 mmol/L (8-16); Blood Urea Nitrogen 18 mg/dL (7-17); Calcium 7.3 mg/dL (8.4-10.2); Carbon Dioxide 23 mmol/L (22-30); Chloride 104 mmol/L (98-107); Estimated CRCL calculation 38 ml/min; Estimated Glomerular Filt Rate 48; Glucose 147 mg/dL (65-110); Magnesium 1.6 mg/dL (1.6-2.3); Potassium 3.6 mmol/L (3.4-5.0); Sodium 135 mmol/L (137-145)
[2022-01-15] MEDS: ALBUMIN HUMAN 25% 25 GM/100 ML 100 ML IVPB ×3 (12:07→23:51)
[2022-01-15] MEDS: MAGNESIUM SULF 2 GM/WATER 50ML 2 GM/50 ML BAG IVPB (12:23)
[2022-01-15] MEDS: HYDROmorphone HCL INJ (*CRX) 1 MG/ML SYR 0.25 MG IV PUSH (12:39)
[2022-01-15] MEDS: KCL 40 MEQ/WATER 100 ML 100 ML 25 ML IVPB (12:55)
[2022-01-15] MEDS: NOREPINEPHRINE 8 MG/D5W 250 ML 8 MG/250 ML BAG 22.5 MG IV CONT (13:39)
--- NOTE | 2022-01-15 13:39 | PM.IMPN ---
Progress Note: A&P Assessment and Plan (1) Septic shock: Code(s): A41.9 - Sepsis, unspecified organism; R65.21 - Severe sepsis with septic shock Status: Inactive Assessment and Plan: -as evidence by left-shifted white blood cell count, elevated lactic acid, hypotension requiring pressor support and multiple organ dysfunction in setting of elevated creatinine, elevated transaminases and co-infections of pneumonia and acute urinary tract. -continue Levophed drip for pressor support -monitor labs and vitals -supplemental oxygenation and respiratory support p.r.n. -continue antibiotics of vancomycin, Zithromax and Rocephin. -blood cultures pending -reflex lactic acid -patient received fluid resuscitation with 3 L normal saline, a total of 2316 ml is 30 mils per kilos for this patient -place in intensive care -continue IV fluid hydration with normal saline at 100 mL/hour - Continuous cardiac monitoring - VS per unit protocol - I&O Per unit protocol (2) Pneumonia: Code(s): J18.9 - Pneumonia, unspecified organism Status: Acute Assessment and Plan: -as evidence by chest x-ray -see above plan for septic shock/sepsis -continue IV fluids and IV antibiotics of vancomycin, Zithromax and Rocephin -urine for Legionella and streptococcal pneumonia ordered. - Monitor daily labs and VS. (3) Ureterolithiasis: Code(s): N20.1 - Calculus of ureter Status: Acute Assessment and Plan: - As evidenced by CT scan and causing Hydronephrosis in setting of septic shock, UTI and PNA (CAP) - Dr. Wu was consulted and is taking to OR Currently. - Will follow all post-operative orders from Urology. (4) Acute kidney injury: Code(s): N17.9 - Acute kidney failure, unspecified Status: Acute Assessment and Plan: - Elevated Cr and BUN at 1.2/9 with baseline creatinine being 0.69. - IVF hydration continued. - Monitor labs, VS and UOP. (5) Urinary tract infection: Code(s): N39.0 - Urinary tract infection, site not specified Status: Acute Assessment and Plan: - See above plan for operative intervention that likely has contributed to the patient's sepsis - Continue abx. of Rocephin, Vancomycin. (6) MODS (multiple organ dysfunction syndrome): Status: Acute Assessment and Plan: - Plan as above with supportive measures. Plan At the time of this admission patient's home medications have not yet been reviewed for reconciliation. I do appreciate the following attending provider attention and assistance completing the home medication reconciliation. Additional Plan 01/15/2022 interval history: 76-year-old female was brought emergency department with hypotension suspect patient has a septic shock due to pyelonephritis secondary to obstructing right proximal ureteral stone patient was seen by urologist and had a cystoscopy, right retrograde pyelogram left and ureteral stent placement, currently patient ICU discussed with fingerprinter patient urine output is improved, blood pressure is improved and weaning off the pressor patient being treated with imipenem and vancomycin will follow-up on urine and blood culture and further recommendation to follow, patient is somnolent unable to provide detailed review of symptoms, appreciate fingerprinter and urologist. Subjective Date/time seen: 01/15/22 13:39 Chief Complaint: Unwell with low BP Narrative: HPI- This 76 year old female patient with significant PMH of SSS, Dementia, hypothyroidism, and fatty liver who resides at a memory care facility is brought via EMS to the ER after being found with a low BP of 70s/40s. It is difficult to obtain a history from the patient secondary to her level of dementia. She cannot answer any orientation questions for me with exception of her name. The family believed that she had been complaining of flank pain as told to the ER provider. They were not at the bedside when I examined patient. On ar
--- NOTE | 2022-01-15 15:05 | WPDUROPN2 ---
Progress Note: A&P Assessment and Plan (1) Right ureteral stone: Code(s): N20.1 - Calculus of ureter Status: Acute (2) Pyelonephritis: Code(s): N12 - Tubulo-interstitial nephritis, not specified as acute or chronic Status: Acute (3) Septic shock: Code(s): A41.9 - Sepsis, unspecified organism; R65.21 - Severe sepsis with septic shock Status: Acute Plan Appreciate Dr. Snowden's efforts. Ureteral stent appears to be functioning-> good u/o and stable renal function Subjective Subjective Date/Time Seen: 01/15/22 15:05 Unable to communicatd\e Review of Systems Review of Systems: ROS unobtainable: Yes unobtainable due to medical condition Exam Const: General: no acute distress Resp: Effort & Inspection: normal respiratory effort GI: Inspection: non-distended GI Palp: No abdominal tenderness and No Guarding due to palpation present (GI) Auscultation: normal bowel sounds Objective Data Vital Signs Vital Signs: Vital Signs - 24 hr 01/14/22 15:11 01/14/22 15:25 01/14/22 15:27 Temperature Pulse Rate 80 82 88 Respiratory Rate 19 Blood Pressure 87/51 L 88/52 L 84/56 L Pulse Oximetry 99 Oxygen Delivery Oxygen Flow Rate Fraction of Inspired Oxygen 01/14/22 15:31 01/14/22 15:35 01/14/22 18:00 Temperature Pulse Rate 83 93 Respiratory Rate 15 Blood Pressure 91/49 L 86/57 L Pulse Oximetry Oxygen Delivery Oxygen Flow Rate Fraction of Inspired Oxygen 01/14/22 18:00 01/14/22 18:00 01/14/22 18:15 Temperature 98.2 F Pulse Rate 85 Respiratory Rate 31 H Blood Pressure 87/55 L 82/43 L Pulse Oximetry 95 95 Oxygen Delivery Simple Face Mask Oxygen Flow Rate 5 Fraction of Inspired Oxygen 01/14/22 21:10 01/14/22 20:00 01/14/22 20:00 Temperature Pulse Rate 95 90 Respiratory Rate Blood Pressure Pulse Oximetry 92 Oxygen Delivery Simple Face Mask Oxygen Flow Rate 8 Fraction of Inspired Oxygen 01/14/22 20:00 01/14/22 22:00 01/14/22 22:35 Temperature 98 F Pulse Rate 90 90 87 Respiratory Rate 31 H 33 H 35 H Blood Pressure 87/55 L 84/66 L Pulse Oximetry 91 90 Oxygen Delivery Oxygen Flow Rate Fraction of Inspired Oxygen 01/14/22 23:47 01/15/22 00:00 01/15/22 00:51 Temperature Pulse Rate 80 78 78 Respiratory Rate Blood Pressure 70/53 L 70/49 L Pulse Oximetry Oxygen Delivery Oxygen Flow Rate Fraction of Inspired Oxygen 01/15/22 00:00 01/15/22 00:00 01/15/22 00:00 Temperature 97.6 F Pulse Rate 77 79 79 Respiratory Rate 28 H 29 H Blood Pressure 97/63 L Pulse Oximetry 93 93 Oxygen Delivery High Flow Therapy with Na Oxygen Flow Rate 40 Fraction of Inspired Oxygen 60 01/15/22 01:57 01/15/22 02:00 01/15/22 03:56 Temperature Pulse Rate 88 72 73 Respiratory Rate 19 28 H 30 H Blood Pressure 109/68 Pulse Oximetry 93 94 94 Oxygen Delivery High Flow Therapy with Na High Flow Therapy with Na Oxygen Flow Rate 55 40 Fraction of Inspired Oxygen 60 60 01/15/22 04:00 01/15/22 05:47 01/15/22 04:00 Temperature 97.5 F L Pulse Rate 73 84 73 Respiratory Rate 29 H 22 H Blood Pressure 109/65 Pulse Oximetry 94 94 Oxygen Delivery High Flow Therapy with Na Oxygen Flow Rate 55 Fraction of Inspired Oxygen 60 01/15/22 06:00 01/15/22 06:21 01/15/22 06:23 Temperature Pulse Rate 73 73 73 Respiratory Rate 28 H 28 H Blood Pressure 125/70 125/70 Pulse Oximetry 94 Oxygen Delivery Oxygen Flow Rate Fraction of Inspired Oxygen 01/15/22 07:52 01/15/22 08:25 01/15/22 07:58 Temperature 97.2 F L Pulse Rate 77 74 75 Respiratory Rate 30 H 36 H 40 H Blood Pressure 110/66 Pulse Oximetry 96 95 Oxygen Delivery High Flow Therapy with Na Oxygen Flow Rate 55 Fraction of Inspired Oxygen 60 01/15/22 08:00 01/15/22 09:31 01/15/22 07:00 Temperature Pulse Rate 75 78 76 Respiratory Rate 40 H
--- NOTE | 2022-01-15 16:18 | PC.NURSE ---
Pt agitated, disoriented, and calling out repeatedly, Oh Brenda Gutierrez. Unable to redirect. Attempted to climb out of bed. HR increased and respirations increased with agitation. Restarted precedex gtt at 0.1mcg/kg/min. Updated patient's son, Paul on patient's condition.
[2022-01-15] MEDS: AMIODARONE 360 MG/D5W 200 ML 360 MG/200 ML BAG 16.67 MG IV CONT (17:48)
--- NOTE | 2022-01-15 18:13 | PC.NURSE ---
Update provided to Dr. Polo on patient condition. Decreased oxygen saturation while on Airvo at 60% FiO2. Respiratory rate consistently 30's to 40's. Lung bases diminished. HR 120's and stable BP. Orders for stat chest xray and bipap initiation: settings 10/5, backup of 10, and orders to titrate oxygen to keep sats above 92%.
--- NOTE | 2022-01-15 19:57 | ECG_ITS ---
Measurements Intervals [place] Rate: 68 P: 44 [place]: 151 QRS: -1 QRSD: 102 T: 30 QT: 416 QTc: 442 Interpretive Statements SINUS RHYTHM BORDERLINE T WAVE ABNORMALITY- INFERIOR LEADS BORDERLINE ECG Electronically Signed On 01-16-2022 7:02:41 CDT by Tee Lewis D.O.
[2022-01-15] MEDS: ARIPiprazole 2 MG TABLET PO (20:50)
[2022-01-16] VITALS (41 sets, daily range): BP systolic 70–123; BP diastolic 52–91; PULSE 56–79; RESP 13–30; TEMP 36.1–36.8; O2SAT 90–97
--- NOTE | 2022-01-16 | ECHO_ITS ---
Patient Info Name: Catherine Gagnon Age: 76 years : 1945 Gender: Female Ht: 63 in Wt: 167 lbs BSA: 1.86 m2 HR: 62 bpm BP: 98 / 61 mmHg Heart Rhythm: Sinus Rhythm Technical Quality: Fair Exam Date: 01/16/2022 7:57 AM Exam Location: [facility] Patient Status: Inpatient Admit Date: 01/14/2022 Staff Ordering Physician: Bettina Polo MD Lumber Trimmer: Mili Galeano RDCS Attending Provider: Charles Wu MD Referring Physician: Christ AGRAWAL; Exam Type: CA echo doppler color flow Study Info Indications - SEPTIC SHOCK Complete two-dimensional, color flow and Doppler transthoracic echocardiogram is performed. Summary 1. Complete two-dimensional, color flow and Doppler transthoracic echocardiogram is performed. 2. Left ventricular chamber dimension is normal. 3. Left ventricular systolic function is normal, estimated at 55-60%. 4. There is no increased left ventricular wall thickness. 5. The left ventricular diastolic function is grade II diastolic dysfunction. 6. Left atrial chamber dimension is mildly enlarged. 7. There is mild aortic valve calcification. 8. There is mild mitral valve regurgitation. 9. There is mild tricuspid valve regurgitation. 10. Mild pulmonary hypertension, estimated pulmonary arterial systolic pressure is 37 mmHg. Left Ventricle Left ventricular chamber dimension is normal. Left ventricular systolic function is normal, estimated at 55-60%. There is no increased left ventricular wall thickness. The left ventricular diastolic function is grade II diastolic dysfunction. Right Ventricle Right ventricular chamber dimension is normal. Right ventricular systolic function is normal. Linear artifact in right ventricle suggestive of catheter(s), pacemaker lead(s), or ICD lead(s). Left Atria Left atrial chamber dimension is mildly enlarged. Right Atria Right atrial chamber dimension is normal. Atrial Septum Intact interatrial septum visualized by color flow imaging. Aortic Valve The aortic valve is trileaflet. There is no aortic valve stenosis. There is trace aortic valve regurgitation. There is mild aortic valve calcification. Pulmonic Valve The pulmonic valve is normal. There is no pulmonic valve stenosis. There is trace pulmonic regurgitation. Mitral Valve The mitral valve has thickened leaflets. There is no mitral valve stenosis. There is mild mitral valve regurgitation. Tricuspid Valve The tricuspid valve leaflets are normal. There is no significant tricuspid valve stenosis. There is mild tricuspid valve regurgitation. Mild pulmonary hypertension, estimated pulmonary arterial systolic pressure is 37 mmHg. Pericardium/Pleural The pericardium appears normal. Inferior Vena Cava Dilated inferior vena cava with <50% collapse upon inspiration consistent with elevated right atrial pressure, 15 mmHg. Aorta The aortic root size at the sinus of Valsalva is normal. The prox ascending aorta size is normal. Left Ventricular Outflow Tract Name Value Normal LVOT 2D LVOT Diameter 1.9 cm LVOT Doppler LVOT Peak Grad
[2022-01-16] MEDS: dexmedeTOMIDine 400 MCG/100 ML 400 MCG/100 ML BAG IV CONT (00:07)
[2022-01-16] MEDS: AMIODARONE 360 MG/D5W 200 ML 360 MG/200 ML BAG 16.67 MG IV CONT (04:29)
[2022-01-16 04:58] LABS: Hematocrit 32.2 % (37.0-47.0); Immature Platelet Fraction Pct 13.7 % (0.9-11.2); Mean Corpuscular HGB Conc 34.2 g/dl (32-36); Mean Corpuscular Hemoglobin 31.7 pg (26-34); Mean Corpuscular Volume 92.8 fl (80-100); Mean Platelet Volume 11.8 fl (7.4-10.4); Platelet Count Result 66 k/mm3 (150-375); Red Blood Count 3.47 M/mm3 (4.2-5.4); Red Cell Distribution Width 12.8 % (11.5-14.5); White Blood Count 23.5 K/mm3 (4.5-10.0)
[2022-01-16] MEDS: ALBUMIN HUMAN 25% 25 GM/100 ML 100 ML IVPB ×4 (05:04→23:33)
[2022-01-16 05:08] LABS: Alanine Aminotransferase 25 U/L (6-35); Alkaline Phosphatase 77 U/L (38-126); Anion Gap 9 mmol/L (8-16); Aspartate Amino Transferase 29 U/L (14-36); Bilirubin,Total 0.8 mg/dL (0.2-1.3); Blood Urea Nitrogen 14 mg/dL (7-17); Calcium 7.8 mg/dL (8.4-10.2); Carbon Dioxide 28 mmol/L (22-30); Chloride 99 mmol/L (98-107); Estimated CRCL calculation 58 ml/min; Estimated Glomerular Filt Rate > 60; Glucose 148 mg/dL (65-110); Lactic Acid Reflex 3.3 mmol/L (0.7-2.0); Magnesium 2.2 mg/dL (1.6-2.3); Phosphorus 1.8 mg/dL (2.5-4.5); Sodium 136 mmol/L (137-145)
[2022-01-16 05:33] LABS: Atypical Lymphocytes Present; Band Neutrophils Percent 19 % (0-6); Hypochromasia 1+ (NORMAL); Lymphocytes Absolute Manual 2.58 K/mm3 (1.1-4.5); Monocytes Absolute Manual 0.23 K/mm3 (0.1-0.90); Monocytes Percent Manual 1 % (3-9); Neutrophils Absolute Manual 20.68 K/mm3 (1.7-7.2); Neutrophils Percent Manual 69 % (46-73); Total Cells Counted 100
[2022-01-16 05:34] LABS: Anisocytosis 1+ (NORMAL); Poikilocytosis 1+ (NORMAL)
[2022-01-16] MEDS: LEVOTHYROXINE SODIUM 100 MCG TABLET PO (05:36)
[2022-01-16 07:57] LABS: Reflex Lactic Acid Yes or No Add Lactic
[2022-01-16] MEDS: SODIUM CHLORIDE 0.9% IV 1,000 ML 75 ML IV CONT (08:09)
[2022-01-16] MEDS: PANTOPRAZOLE SODIUM IV 40 MG VIAL IV PUSH (08:17)
--- NOTE | 2022-01-16 08:30 | WPDINTPN ---
Progress Note: A&P Assessment and Plan (1) Septic shock: Code(s): A41.9 - Sepsis, unspecified organism; R65.21 - Severe sepsis with septic shock Status: Acute Assessment and Plan: Patient presented with altered mental status, hypotension, lethargy. Likely related to acute pyelonephritis -01/14/2022: CT scan of the abdomen: Right UPJ stone measuring 6 mm with moderate hydronephrosis. -01/14: urology took the patient to the OR for cystoscopy, right retrograde pyelography and right ureteral stent placement -Continue imipenem and vancomycin ( started 01/14) -patient currently on Levophed, will maintain MAP > 65 mmHg for adequate end organ and renal perfusion -01/14 blood culture negative x2 so far - 01/14: Urine culture no growth -lactic acid trending down -will stop bicarb infusion start normal saline -continue to monitor urine output -continue albumin Leukocytosis and bandemia are improving (2) Pyelonephritis: Code(s): N12 - Tubulo-interstitial nephritis, not specified as acute or chronic Status: Acute Assessment and Plan: 01/14/2022 status post cystoscopy, right retrograde pyelography and right ureteral stent placement -continue antibiotics as above - 01/14 urine cultures negative so far (3) Right ureteral stone: Code(s): N20.1 - Calculus of ureter Status: Acute Assessment and Plan: As above (4) Acute kidney injury: Code(s): N17.9 - Acute kidney failure, unspecified Status: Acute Assessment and Plan: Acute kidney injury likely related to pyelonephritis, septic shock, hypovolemia -patient received significant amount of IV fluids, chest x-ray shows pulmonary edema, will diurese with Lasix 20 mg IV x1 -will discontinue bicarb infusion and start normal saline maintenance IV fluids Creatinine has normalized to 0.7 -continue to monitor urine output, renal function and electrolytes (5) Pneumonia: Code(s): J18.9 - Pneumonia, unspecified organism Status: Acute Assessment and Plan: Pneumonia versus pulmonary edema -01/16 chest x-ray: Interstitial and airspace opacities in bilateral mid and lower lung zones with differential including pulmonary edema or pneumonia. Small bilateral pleural effusions with associated basilar atelectasis. Patient required BiPAP overnight as she was desaturating, currently on 03/29, 40% FiO2 -will switch to nasal cannula and on Airvo as tolerated -continue antibiotics as above (6) Hypothyroidism: Code(s): E03.9 - Hypothyroidism, unspecified Status: Acute Assessment and Plan: Continue levothyroxine (7) Dementia: Code(s): F03.90 - Unspecified dementia without behavioral disturbance Status: Acute Assessment and Plan: Continue Abilify, BuSpar, Lexapro (8) Electrolyte abnormality: Code(s): E87.8 - Other disorders of electrolyte and fluid balance, not elsewhere classified Status: Acute Assessment and Plan: Replace potassium and phosphorus (9) Thrombocytopenia: Code(s): D69.6 - Thrombocytopenia, unspecified Status: Acute Assessment and Plan: Likely related to septic shock -hold heparin for now -No active bleeding noted -continue to monitor platelets Plan Discontinue bicarb infusion, start IV fluids with normal saline Will alternate BiPAP with nasal cannula Additional Plan DVT prophylaxis: SCDs, heparin was discontinued due to thrombocytopenia Nutrition: Will start clear liquid diet Code status: Do not resuscitate Critical care time spent: 35 minutes Discussed with son and [id number], updated with patient's condition and plan of care. Answered all questions This dictation may have been done utilizing a voice recognition system. Attempts have been made to correct errors. However, there may be uncorrected grammatical, spelling, and recognition errors present. Due to a high probability of clinically significant, life threaten
[2022-01-16 08:33] LABS: Lactic Acid 2.8 mmol/L (0.7-2.0)
[2022-01-16] MEDS: POTASSIUM PHOS,M-BASIC-D-BASIC 40 MMOL in SODIUM CHLORIDE 0.9% IV 250 ML 43.89 MMOL IVPB (09:07)
[2022-01-16] MEDS: NOREPINEPHRINE 8 MG/D5W 250 ML 8 MG/250 ML BAG 3.75 MG IV CONT (09:22)
[2022-01-16] MEDS: ESCITALOPRAM OXALATE 10 MG TABLET 20 MG PO (09:32)
[2022-01-16] MEDS: busPIRone HCL 2.5 MG TABLET PO ×2 (09:33→17:34)
[2022-01-16] MEDS: OPTI-GEN TAB 1 TABLET PO (09:33)
[2022-01-16] MEDS: busPIRone HCL 5 MG TABLET PO ×2 (09:33→17:33)
[2022-01-16] MEDS: OMEGA 3 POLYUNSAT FATTY ACIDS 1 GM CAP PO (09:33)
[2022-01-16] MEDS: HYDROmorphone HCL INJ (*CRX) 1 MG/ML SYR 0.25 MG IV PUSH (12:51)
[2022-01-16] MEDS: CENTRAL LINE FLUSH 10 ML IV PUSH ×3 (13:47→19:50)
--- NOTE | 2022-01-16 15:56 | PM.IMPN ---
Progress Note: A&P Assessment and Plan (1) Septic shock: Code(s): A41.9 - Sepsis, unspecified organism; R65.21 - Severe sepsis with septic shock Status: Inactive Assessment and Plan: -as evidence by left-shifted white blood cell count, elevated lactic acid, hypotension requiring pressor support and multiple organ dysfunction in setting of elevated creatinine, elevated transaminases and co-infections of pneumonia and acute urinary tract. -continue Levophed drip for pressor support -monitor labs and vitals -supplemental oxygenation and respiratory support p.r.n. -continue antibiotics of vancomycin, Zithromax and Rocephin. -blood cultures pending -reflex lactic acid -patient received fluid resuscitation with 3 L normal saline, a total of 2316 ml is 30 mils per kilos for this patient -place in intensive care -continue IV fluid hydration with normal saline at 100 mL/hour - Continuous cardiac monitoring - VS per unit protocol - I&O Per unit protocol (2) Pneumonia: Code(s): J18.9 - Pneumonia, unspecified organism Status: Acute Assessment and Plan: -as evidence by chest x-ray -see above plan for septic shock/sepsis -continue IV fluids and IV antibiotics of vancomycin, Zithromax and Rocephin -urine for Legionella and streptococcal pneumonia ordered. - Monitor daily labs and VS. (3) Ureterolithiasis: Code(s): N20.1 - Calculus of ureter Status: Acute Assessment and Plan: - As evidenced by CT scan and causing Hydronephrosis in setting of septic shock, UTI and PNA (CAP) - Dr. Wu was consulted and is taking to OR Currently. - Will follow all post-operative orders from Urology. (4) Acute kidney injury: Code(s): N17.9 - Acute kidney failure, unspecified Status: Acute Assessment and Plan: - Elevated Cr and BUN at 1.2/9 with baseline creatinine being 0.69. - IVF hydration continued. - Monitor labs, VS and UOP. (5) Urinary tract infection: Code(s): N39.0 - Urinary tract infection, site not specified Status: Acute Assessment and Plan: - See above plan for operative intervention that likely has contributed to the patient's sepsis - Continue abx. of Rocephin, Vancomycin. (6) MODS (multiple organ dysfunction syndrome): Status: Acute Assessment and Plan: - Plan as above with supportive measures. Plan At the time of this admission patient's home medications have not yet been reviewed for reconciliation. I do appreciate the following attending provider attention and assistance completing the home medication reconciliation. Additional Plan 01/15/2022 interval history: 76-year-old female was brought emergency department with hypotension suspect patient has a septic shock due to pyelonephritis secondary to obstructing right proximal ureteral stone patient was seen by urologist and had a cystoscopy, right retrograde pyelogram left and ureteral stent placement, currently patient ICU discussed with call or contact centre operator patient urine output is improved, blood pressure is improved and weaning off the pressor patient being treated with imipenem and vancomycin will follow-up on urine and blood culture and further recommendation to follow, patient is somnolent unable to provide detailed review of symptoms, appreciate call or contact centre operator and urologist. 01/16/2022 interval history: 76-year-old female was brought emergency department with hypotension suspect patient has a septic shock due to pyelonephritis secondary to obstructing right proximal ureteral stone patient was seen by urologist and had a cystoscopy, right retrograde pyelogram left and ureteral stent placement, currently patient ICU discussed with call or contact centre operator patient urine output has improved, urine and blood culture no growth so far, blood pressure has improved and weaning off the pressor patient being treated with imipenem and vancomycin will follow-up on urine and blood culture and further recommendation to follow
[2022-01-16] MEDS: ARIPiprazole 2 MG TABLET PO (19:50)
[2022-01-17] VITALS (26 sets, daily range): BP systolic 93–167; BP diastolic 53–98; PULSE 54–91; RESP 12–25; TEMP 36.4–37.2; O2SAT 92–100
[2022-01-17] MEDS: ONDANSETRON INJ 4 MG/2 ML VIAL IV PUSH (01:08)
--- NOTE | 2022-01-17 03:38 | PC.NURSE ---
Patient confused, continously trying to crawl out of bed, removing oxygen, attempting to remove blood pressure cuff, attempting to pull at Whitt. Pt redirected continuously. Becoming combative and kicking with feet. Precedex infusion increased and placed in restraints.
[2022-01-17 04:27] LABS: Basophils Absolute Auto 0.2 K/mm3 (0.0-0.1); Basophils Percent Auto 0.9 % (0.2-1.2); Eosinophils Absolute Auto 0.1 K/mm3 (0-0.3); Eosinophils Percent Auto 0.8 % (0-4.4); Hematocrit 31.1 % (37.0-47.0); Hemoglobin 10.5 g/dL (12.0-15.0); Immature Granulocyte Absolute 0.11 K/mm3 (0.00-0.031); Immature Granulocyte Percent A 0.6 % (0-0.5); Immature Platelet Fraction Pct 14.8 % (0.9-11.2); Lymphocytes Absolute Auto 1.68 K/mm3 (0.9-3.2); Lymphocytes Percent Auto 9.9 % (18.3-44.2); Mean Corpuscular HGB Conc 33.8 g/dl (32-36); Mean Corpuscular Hemoglobin 31.7 pg (26-34); Mean Platelet Volume 11.8 fl (7.4-10.4); Monocytes Absolute Auto 0.6 K/mm3 (0.1-0.6); Monocytes Percent Auto 3.5 % (2.6-8.5); Neutrophils Absolute Auto 14.3 K/mm3 (1.3-6.7); Neutrophils Percent Auto 84.3 % (45.5-73.1); Platelet Count Result 66 k/mm3 (150-375); Red Blood Count 3.31 M/mm3 (4.2-5.4); Red Cell Distribution Width 13.2 % (11.5-14.5)
[2022-01-17] MEDS: SODIUM CHLORIDE 0.9% IV 1,000 ML 50 ML IV CONT (04:28)
[2022-01-17] MEDS: CENTRAL LINE FLUSH 10 ML IV PUSH (04:29)
[2022-01-17 04:32] LABS: Lactic Acid Reflex 1.6 mmol/L (0.7-2.0)
[2022-01-17 04:35] LABS: Alanine Aminotransferase 25 U/L (6-35); Albumin Level 3.5 g/dL (3.5-5.1); Alkaline Phosphatase 106 U/L (38-126); Anion Gap 9 mmol/L (8-16); Aspartate Amino Transferase 38 U/L (14-36); Bilirubin,Total 1.3 mg/dL (0.2-1.3); Blood Urea Nitrogen 10 mg/dL (7-17); Calcium 8.7 mg/dL (8.4-10.2); Carbon Dioxide 26 mmol/L (22-30); Chloride 102 mmol/L (98-107); Creatine Kinase 28 U/L (30-135); Estimated CRCL calculation 68 ml/min; Estimated Glomerular Filt Rate > 60; Glucose 103 mg/dL (65-110); Magnesium 2.2 mg/dL (1.6-2.3); Phosphorus 2.9 mg/dL (2.5-4.5); Potassium 3.5 mmol/L (3.4-5.0); Sodium 137 mmol/L (137-145)
--- NOTE | 2022-01-17 04:52 | PC.NURSE ---
Pt pulled right hand out of restraint and attempting to pull at Whitt. Right leg pulled out of SCD. Restraint replaced and verified as secure. SCDs fixed. Precedex increased to 0.8.
[2022-01-17] MEDS: ALBUMIN HUMAN 25% 25 GM/100 ML 100 ML IVPB (05:06)
[2022-01-17] MEDS: LEVOTHYROXINE SODIUM 100 MCG TABLET PO (05:56)
[2022-01-17] MEDS: dexmedeTOMIDine 400 MCG/100 ML 400 MCG/100 ML BAG 13.02 MCG IV CONT (06:00)
[2022-01-17] MEDS: FUROSEMIDE INJ 40 MG/4 ML VIAL 20 MG IV PUSH (08:16)
[2022-01-17] MEDS: busPIRone HCL 2.5 MG TABLET PO ×2 (08:17→16:51)
[2022-01-17] MEDS: OPTI-GEN TAB 1 TABLET PO (08:18)
[2022-01-17] MEDS: OMEGA 3 POLYUNSAT FATTY ACIDS 1 GM CAP PO (08:18)
[2022-01-17] MEDS: ESCITALOPRAM OXALATE 10 MG TABLET 20 MG PO (08:18)
[2022-01-17] MEDS: busPIRone HCL 5 MG TABLET PO ×2 (08:18→16:51)
[2022-01-17] MEDS: PANTOPRAZOLE SODIUM IV 40 MG VIAL IV PUSH (08:19)
--- NOTE | 2022-01-17 09:09 | WPDINTPN ---
Progress Note: A&P Assessment and Plan (1) Septic shock: Code(s): A41.9 - Sepsis, unspecified organism; R65.21 - Severe sepsis with septic shock Status: Acute Assessment and Plan: RESOLVED: Patient presented with altered mental status, hypotension, lethargy. Likely related to acute pyelonephritis -01/14/2022: CT scan of the abdomen: Right UPJ stone measuring 6 mm with moderate hydronephrosis. -01/14: urology took the patient to the OR for cystoscopy, right retrograde pyelography and right ureteral stent placement -Continue imipenem and vancomycin ( started 01/14) -01/14 blood culture negative x2 so far - 01/14: Urine culture no growth -Leukocytosis trending down, lactic acid normalized -OFF LEVOPHED -improved urine output (2) Pyelonephritis: Code(s): N12 - Tubulo-interstitial nephritis, not specified as acute or chronic Status: Acute Assessment and Plan: 01/14/2022 status post cystoscopy, right retrograde pyelography and right ureteral stent placement -continue antibiotics as above - 01/14 urine cultures negative so far (3) Right ureteral stone: Code(s): N20.1 - Calculus of ureter Status: Acute Assessment and Plan: As above (4) Acute kidney injury: Code(s): N17.9 - Acute kidney failure, unspecified Status: Acute Assessment and Plan: Acute kidney injury likely related to pyelonephritis, septic shock, hypovolemia -patient received significant amount of IV fluids, chest x-ray shows pulmonary edema, will diurese with Lasix 20 mg IV x1 -will discontinue IV fluid - Creatinine has normalized -lactic acid normal -continue to monitor urine output, renal function and electrolytes (5) Pneumonia: Code(s): J18.9 - Pneumonia, unspecified organism Status: Acute Assessment and Plan: Pneumonia versus pulmonary edema -01/16 chest x-ray: Interstitial and airspace opacities in bilateral mid and lower lung zones with differential including pulmonary edema or pneumonia. Small bilateral pleural effusions with associated basilar atelectasis. -01/17: chest x-ray shows: increasing interstitial and ground glass opacities throughout both lungs consistent with worsening mild pulmonary edema and small bilateral pleural effusions.. Patchy consolidation in the left lower lung zone which could represent atelectasis or pneumonia. -Will diurese patient -add bronchodilators -currently on high-flow nasal cannula at 5 L -continue antibiotics as above (6) Hypothyroidism: Code(s): E03.9 - Hypothyroidism, unspecified Status: Acute Assessment and Plan: Continue levothyroxine (7) Dementia: Code(s): F03.90 - Unspecified dementia without behavioral disturbance Status: Acute Assessment and Plan: Continue Abilify, BuSpar, Lexapro -patient with dementia, encephalopathy, early this morning patient was pulling on her Whitt, IV line, trying to crawl out of bed, kicking the staff, was placed in soft wrist restraints head restarted on Precedex infusion (8) Electrolyte abnormality: Code(s): E87.8 - Other disorders of electrolyte and fluid balance, not elsewhere classified Status: Acute Assessment and Plan: Normal potassium and phosphorus (9) Thrombocytopenia: Code(s): D69.6 - Thrombocytopenia, unspecified Status: Acute Assessment and Plan: Likely related to septic shock -hold heparin for now -No active bleeding noted -continue to monitor platelets Plan Discontinue IV fluids Off Levophed Start bronchodilators Will diurese patient Continue antibiotics Wean Precedex Add oxybutynin Additional Plan DVT prophylaxis: SCDs, heparin was discontinued due to thrombocytopenia Nutrition: Will start clear liquid diet Code status: Do not resuscitate Critical care time spent: 33 minutes Discussed with son and [id number], updated with patient's condition and plan of care. Answered all questi
[2022-01-17] MEDS: ALBUTEROL SULFATE NEB 2.5 MG/3 ML INH INHALATION ×2 (13:46→20:00)
--- NOTE | 2022-01-17 14:23 | PCPTNOTE ---
Patient has a femoral central line at this time. It is not safe for patient to transfer until Femoral line is removed. RN aware. Will follow.
--- NOTE | 2022-01-17 14:51 | PCSTNOTE ---
Patient seen for bedside swallowing evaluation. Patient took uncontrolled bolus amounts of thin liquids by straw (water). One episode of coughing after first trial. Tolerated pureed texture (applesauce) by spoon with no signs or symptoms of aspiration. Recommend diet level 5 (minced and moist) and liquids thickened to level 2. Thank you for the referral of this patient.
--- NOTE | 2022-01-17 15:56 | PM.IMPN ---
Progress Note: A&P Assessment and Plan (1) Septic shock: Code(s): A41.9 - Sepsis, unspecified organism; R65.21 - Severe sepsis with septic shock Status: Inactive Assessment and Plan: -as evidence by left-shifted white blood cell count, elevated lactic acid, hypotension requiring pressor support and multiple organ dysfunction in setting of elevated creatinine, elevated transaminases and co-infections of pneumonia and acute urinary tract. -continue Levophed drip for pressor support -monitor labs and vitals -supplemental oxygenation and respiratory support p.r.n. -continue antibiotics of vancomycin, Zithromax and Rocephin. -blood cultures pending -reflex lactic acid -patient received fluid resuscitation with 3 L normal saline, a total of 2316 ml is 30 mils per kilos for this patient -place in intensive care -continue IV fluid hydration with normal saline at 100 mL/hour - Continuous cardiac monitoring - VS per unit protocol - I&O Per unit protocol (2) Pneumonia: Code(s): J18.9 - Pneumonia, unspecified organism Status: Acute Assessment and Plan: -as evidence by chest x-ray -see above plan for septic shock/sepsis -continue IV fluids and IV antibiotics of vancomycin, Zithromax and Rocephin -urine for Legionella and streptococcal pneumonia ordered. - Monitor daily labs and VS. (3) Ureterolithiasis: Code(s): N20.1 - Calculus of ureter Status: Acute Assessment and Plan: - As evidenced by CT scan and causing Hydronephrosis in setting of septic shock, UTI and PNA (CAP) - Dr. Wu was consulted and is taking to OR Currently. - Will follow all post-operative orders from Urology. (4) Acute kidney injury: Code(s): N17.9 - Acute kidney failure, unspecified Status: Acute Assessment and Plan: - Elevated Cr and BUN at 1.2/9 with baseline creatinine being 0.69. - IVF hydration continued. - Monitor labs, VS and UOP. (5) Urinary tract infection: Code(s): N39.0 - Urinary tract infection, site not specified Status: Acute Assessment and Plan: - See above plan for operative intervention that likely has contributed to the patient's sepsis - Continue abx. of Rocephin, Vancomycin. (6) MODS (multiple organ dysfunction syndrome): Status: Acute Assessment and Plan: - Plan as above with supportive measures. Plan At the time of this admission patient's home medications have not yet been reviewed for reconciliation. I do appreciate the following attending provider attention and assistance completing the home medication reconciliation. Additional Plan 01/15/2022 interval history: 76-year-old female was brought emergency department with hypotension suspect patient has a septic shock due to pyelonephritis secondary to obstructing right proximal ureteral stone patient was seen by urologist and had a cystoscopy, right retrograde pyelogram left and ureteral stent placement, currently patient ICU discussed with match marker patient urine output is improved, blood pressure is improved and weaning off the pressor patient being treated with imipenem and vancomycin will follow-up on urine and blood culture and further recommendation to follow, patient is somnolent unable to provide detailed review of symptoms, appreciate match marker and urologist. 01/16/2022 interval history: 76-year-old female was brought emergency department with hypotension suspect patient has a septic shock due to pyelonephritis secondary to obstructing right proximal ureteral stone patient was seen by urologist and had a cystoscopy, right retrograde pyelogram left and ureteral stent placement, currently patient ICU discussed with match marker patient urine output has improved, urine and blood culture no growth so far, blood pressure has improved and weaning off the pressor patient being treated with imipenem and vancomycin will follow-up on urine and blood culture and further recommendation to follow
[2022-01-17] MEDS: ACETAMINOPHEN 325 MG TABLET 650 MG PO ×2 (16:51→22:32)
[2022-01-18] VITALS (28 sets, daily range): BP systolic 120–141; BP diastolic 51–76; PULSE 62–136; RESP 16–22; TEMP 36.2–37.3; O2SAT 91–100
[2022-01-18] MEDS: ALBUTEROL SULFATE NEB 2.5 MG/3 ML INH INHALATION ×4 (02:18→20:50)
[2022-01-18 02:56] LABS: Pneumococcal Antigen Urine Not Detected (Not Detected)
[2022-01-18] MEDS: LEVOTHYROXINE SODIUM 100 MCG TABLET PO (05:42)
[2022-01-18] MEDS: busPIRone HCL 2.5 MG TABLET PO ×2 (08:40→17:24)
[2022-01-18] MEDS: OMEGA 3 POLYUNSAT FATTY ACIDS 1 GM CAP PO (08:40)
[2022-01-18] MEDS: ESCITALOPRAM OXALATE 10 MG TABLET 20 MG PO (08:40)
[2022-01-18] MEDS: busPIRone HCL 5 MG TABLET PO ×2 (08:40→17:24)
[2022-01-18] MEDS: OPTI-GEN TAB 1 TABLET PO (08:40)
[2022-01-18] MEDS: PANTOPRAZOLE SODIUM IV 40 MG VIAL IV PUSH (08:41)
--- NOTE | 2022-01-18 10:01 | ECG_ITS ---
Measurements Intervals [place] Rate: 85 P: 171 [place]: 123 QRS: 179 QRSD: 96 T: 151 QT: 288 QTc: 343 Interpretive Statements SINUS RHYTHM ATRIAL PREMATURE COMPLEX ARM LEADS REVERSED BORDERLINE ST-T WAVE ABNORMALITY- ANT/INF LEADS BASELINE ARTIFACT- I, II, III, V5 BORDERLINE ECG Electronically Signed On 01-18-2022 10:40:53 CDT by Tee Lewis D.O.
[2022-01-18 10:16] LABS: Hematocrit 33.4 % (37.0-47.0); Hemoglobin 11.3 g/dL (12.0-15.0); Immature Platelet Fraction Pct 10.5 % (0.9-11.2); Mean Corpuscular HGB Conc 33.8 g/dl (32-36); Mean Corpuscular Hemoglobin 31.7 pg (26-34); Mean Corpuscular Volume 93.6 fl (80-100); Mean Platelet Volume 11.5 fl (7.4-10.4); Platelet Count Result 104 k/mm3 (150-375); Red Blood Count 3.57 M/mm3 (4.2-5.4); Red Cell Distribution Width 13.3 % (11.5-14.5); White Blood Count 15.3 K/mm3 (4.5-10.0)
[2022-01-18 10:28] LABS: Alanine Aminotransferase 28 U/L (6-35); Albumin Level 3.6 g/dL (3.5-5.1); Alkaline Phosphatase 138 U/L (38-126); Anion Gap 9 mmol/L (8-16); Aspartate Amino Transferase 43 U/L (14-36); Bilirubin,Total 1.3 mg/dL (0.2-1.3); Blood Urea Nitrogen 10 mg/dL (7-17); Calcium 9.1 mg/dL (8.4-10.2); Carbon Dioxide 26 mmol/L (22-30); Chloride 104 mmol/L (98-107); Estimated CRCL calculation 80 ml/min; Estimated Glomerular Filt Rate > 60; Glucose 106 mg/dL (65-110); Potassium 2.8 mmol/L (3.4-5.0); Sodium 139 mmol/L (137-145)
[2022-01-18] MEDS: POTASSIUM CHLORIDE 20 MEQ TABLET 40 MEQ PO ×2 (10:51→15:49)
[2022-01-18] MEDS: METOPROLOL SUCCINATE EXT REL 50 MG TABCR PO (10:51)
--- NOTE | 2022-01-18 11:42 | ECG_ITS ---
Measurements Intervals [place] Rate: 117 P: 32 [place]: 153 QRS: 12 QRSD: 90 T: 35 QT: 349 QTc: 489 Interpretive Statements SINUS RHYTHM ATRIAL COUPLETS AND EPISODES OF ATRIAL TACHYCARDIA EARLY PRECORDIAL R/S TRANSITION NONSPECIFIC T-WAVE ABNORMALITY- INF/HIGH LAT LEADS ABNORMAL ECG Electronically Signed On 01-18-2022 12:38:08 CDT by Tee Lewis D.O.
[2022-01-18] MEDS: METOPROLOL TARTRATE INJ 5 MG/5 ML VIAL IV PUSH (12:37)
[2022-01-18 13:30] LABS: Troponin I 0.014 ng/mL (0.000-0.034)
--- NOTE | 2022-01-18 14:44 | PCPTNOTE ---
Attempted PT evaluation, Per OT, try to see patient at later time with no reason given. FATOUMATA Magana agreed to OT. Will follow.
--- NOTE | 2022-01-18 15:19 | PM.IMPN ---
Progress Note: A&P Assessment and Plan (1) Septic shock: Code(s): A41.9 - Sepsis, unspecified organism; R65.21 - Severe sepsis with septic shock Status: Inactive Assessment and Plan: patient was in the ICU. sepsis present on admission likely secondary to pyelonephritis with stone. Status post is stent placement continue IV antibiotics (2) Pneumonia: Code(s): J18.9 - Pneumonia, unspecified organism Status: Acute Assessment and Plan: continue IV antibiotics (3) Ureterolithiasis: Code(s): N20.1 - Calculus of ureter Status: Acute Assessment and Plan: stent placed (4) Acute kidney injury: Code(s): N17.9 - Acute kidney failure, unspecified Status: Acute Assessment and Plan: monitor (5) Urinary tract infection: Code(s): N39.0 - Urinary tract infection, site not specified Status: Acute Assessment and Plan: IV antibiotics (6) SVT (supraventricular tachycardia): Code(s): I47.1 - Supraventricular tachycardia Status: Acute Assessment and Plan: will start home beta-arsenio. Trend troponin Subjective Date/time seen: 01/18/22 15:19 still having some back pain. Exam Narrative: elderly frail Patient is comfortable, NAD HEENT: eyes are clear and none icteric LUNGS: normal respiratory effort ABD: distended Lower extremities: no edema SKIN: nonjaundiced Neuro: grossly intact somnolent. Const: General: uncomfortable Other: Elderly female lying supine in bed at this time in Trendelenburg position, appears uncomfortable. HENMT: Mouth: Yes dry mucous membranes Eyes: General: appearance normal, both eyes and all related structures Sclera: sclerae normal Pupils: Equal, round and reactive pupils present EOM: EOM not intact bilaterally (Does not follow commands) Neck: Neck: supple and no JVD Lymphatic: lymphadenopathy not noted Chest: Other: Does not appear tender to palpation. Resp: Effort & Inspection: abnormal respiratory effort (Decreased, does not follow commands well.) Auscultation: diminished lung sounds bilateral throughout (Secondary to decreased effort.) Other: Patient is noted to be tachypneic breathing in the 30s. Cardio: Rate: regular rate Rhythm: regular rhythm Heart sounds: no gallops, no murmurs and no rubs GI: Inspection: non-distended Auscultation: normal bowel sounds Skin: General skin exam: normal color and no rashes or lesions noted Neuro: Cranial nerves: Yes Equal, round and reactive pupils present Other: At baseline confused. Patient is currently alert and oriented to self only. She has no apparent focal deficits. She is noted to be moving bilateral upper and bilateral lower extremities well without any deficits. Extrem: General: normal to inspection, no edema and no pedal edema Psych: Other: Unable to accurately assess as pt. is confused. Objective Data Vital Signs Vital Signs: Vital Signs - 24 hr 01/17/22 16:00 01/17/22 16:00 01/17/22 16:00 Temperature 98.4 F Pulse Rate 72 72 Respiratory Rate 12 Blood Pressure 102/57 L Pulse Oximetry 95 100 Oxygen Delivery Nasal Cannula Oxygen Flow Rate 2 01/17/22 18:00 01/17/22 20:00 01/17/22 20:12 Temperature Pulse Rate 80 88 82 Respiratory Rate 22 H 20 Blood Pressure Pulse Oximetry 95 Oxygen Delivery Nasal Cannula Oxygen Flow Rate 3 01/17/22 20:12 01/17/22 20:00 01/17/22 20:00 Temperature 98.4 F Pulse Rate 85 88 91 Respiratory Rate 19 20 Blood Pressure 118/65 Pulse Oximetry 100 Oxygen Delivery Oxygen Flow Rate 01/17/22 20:00 01/17/22 22:00 01/18/22 00:00 Temperature Pulse Rate 90 80 Respiratory Rate Blood Pressure Pulse Oximetry 95 Oxygen Delivery Nasal Cannula Oxygen Flow Rate 2 01/18/22 00:00 01/18/22 00:00 01/18/22 02:00 Temperature 98.5 F Pulse Rate 81 75 Respiratory Rate 20 Blood Pressure 12
[2022-01-18 20:47] LABS: Potassium 4.3 mmol/L (3.4-5.0)
[2022-01-18 20:59] LABS: Troponin I 0.012 ng/mL (0.000-0.034)
[2022-01-19] VITALS (20 sets, daily range): BP systolic 122–149; BP diastolic 61–75; PULSE 62–80; RESP 17–22; TEMP 36.1–36.9; O2SAT 90–100
[2022-01-19] MEDS: ALBUTEROL SULFATE NEB 2.5 MG/3 ML INH INHALATION ×4 (01:51→20:20)
[2022-01-19 02:32] LABS: Legionella pneumophila Ag Ur Not Detected (Not Detected)
[2022-01-19] MEDS: LEVOTHYROXINE SODIUM 100 MCG TABLET PO (05:13)
[2022-01-19 05:28] LABS: Hematocrit 33.1 % (37.0-47.0); Hemoglobin 10.9 g/dL (12.0-15.0); Immature Platelet Fraction Pct 10.5 % (0.9-11.2); Mean Corpuscular HGB Conc 32.9 g/dl (32-36); Mean Corpuscular Hemoglobin 31.2 pg (26-34); Mean Corpuscular Volume 94.8 fl (80-100); Mean Platelet Volume 11.7 fl (7.4-10.4); Platelet Count Result 121 k/mm3 (150-375); Red Blood Count 3.49 M/mm3 (4.2-5.4); Red Cell Distribution Width 13.6 % (11.5-14.5); White Blood Count 13.8 K/mm3 (4.5-10.0)
[2022-01-19 05:41] LABS: Alanine Aminotransferase 24 U/L (6-35); Albumin Level 3.2 g/dL (3.5-5.1); Alkaline Phosphatase 130 U/L (38-126); Anion Gap 7 mmol/L (8-16); Aspartate Amino Transferase 35 U/L (14-36); Bilirubin,Total 0.9 mg/dL (0.2-1.3); Blood Urea Nitrogen 9 mg/dL (7-17); Calcium 8.4 mg/dL (8.4-10.2); Carbon Dioxide 25 mmol/L (22-30); Chloride 107 mmol/L (98-107); Estimated CRCL calculation 80 ml/min; Estimated Glomerular Filt Rate > 60; Glucose 92 mg/dL (65-110); Potassium 3.4 mmol/L (3.4-5.0); Sodium 139 mmol/L (137-145)
[2022-01-19 05:45] LABS: NT Pro B Type Natriuretic Pept 2830 pg/mL (5-100)
[2022-01-19] MEDS: busPIRone HCL 2.5 MG TABLET PO ×2 (08:46→18:02)
[2022-01-19] MEDS: PANTOPRAZOLE SODIUM IV 40 MG VIAL IV PUSH (08:46)
[2022-01-19] MEDS: OPTI-GEN TAB 1 TABLET PO (08:46)
[2022-01-19] MEDS: OMEGA 3 POLYUNSAT FATTY ACIDS 1 GM CAP PO (08:47)
[2022-01-19] MEDS: busPIRone HCL 5 MG TABLET PO ×2 (08:47→18:02)
[2022-01-19] MEDS: ESCITALOPRAM OXALATE 10 MG TABLET 20 MG PO (08:47)
[2022-01-19] MEDS: METOPROLOL SUCCINATE EXT REL 50 MG TABCR PO (08:51)
--- NOTE | 2022-01-19 12:43 | PM.IMPN ---
Progress Note: A&P Assessment and Plan (1) Septic shock: Code(s): A41.9 - Sepsis, unspecified organism; R65.21 - Severe sepsis with septic shock Status: Inactive Assessment and Plan: patient was in the ICU. sepsis present on admission likely secondary to pyelonephritis with stone. Status post is stent placement Transitioned to oral antibiotics, Dc Whitt (2) Pneumonia: Code(s): J18.9 - Pneumonia, unspecified organism Status: Acute Assessment and Plan: Oral Omnicef (3) Ureterolithiasis: Code(s): N20.1 - Calculus of ureter Status: Acute Assessment and Plan: stent placed (4) Acute kidney injury: Code(s): N17.9 - Acute kidney failure, unspecified Status: Acute Assessment and Plan: monitor (5) Urinary tract infection: Code(s): N39.0 - Urinary tract infection, site not specified Status: Acute Assessment and Plan: IV antibiotics (6) SVT (supraventricular tachycardia): Code(s): I47.1 - Supraventricular tachycardia Status: Acute Assessment and Plan: will start home beta-arsenio. Trend troponin Additional Plan 01/15/2022 interval history: 76-year-old female was brought emergency department with hypotension suspect patient has a septic shock due to pyelonephritis secondary to obstructing right proximal ureteral stone patient was seen by urologist and had a cystoscopy, right retrograde pyelogram left and ureteral stent placement, currently patient ICU discussed with lift mechanic patient urine output is improved, blood pressure is improved and weaning off the pressor patient being treated with imipenem and vancomycin will follow-up on urine and blood culture and further recommendation to follow, patient is somnolent unable to provide detailed review of symptoms, appreciate lift mechanic and urologist. 01/16/2022 interval history: 76-year-old female was brought emergency department with hypotension suspect patient has a septic shock due to pyelonephritis secondary to obstructing right proximal ureteral stone patient was seen by urologist and had a cystoscopy, right retrograde pyelogram left and ureteral stent placement, currently patient ICU discussed with lift mechanic patient urine output has improved, urine and blood culture no growth so far, blood pressure has improved and weaning off the pressor patient being treated with imipenem and vancomycin will follow-up on urine and blood culture and further recommendation to follow, today patient is little more awake but unable to provide detailed review of symptoms, appreciate lift mechanic and urologist. 01/17/2022 interval history: 76-year-old female was brought emergency department with hypotension suspect patient has a septic shock due to pyelonephritis secondary to obstructing right proximal ureteral stone patient was seen by urologist and had a cystoscopy, right retrograde pyelogram left and ureteral stent placement, admitted patient in ICU discussed with lift mechanic patient urine output has improved, urine and blood culture no growth so far, blood pressure has improved and weaning off the pressor patient being treated with imipenem and vancomycin will follow-up on urine and blood culture and further recommendation to follow, today patient is little more awake as patient is weaned off Precedex her blood pressure is soft holding metoprolol, may resume if needed, today patient is able to provide some review of symptom is feeling better denies any chest pain or shortness, patient is now clinically stable will transfer patient out of ICU to IMU, will continue to monitor appreciate lift mechanic and urologist. Subjective Date/time seen: 01/19/22 12:43 Doing well Exam Narrative: elderly frail Patient is comfortable, NAD HEENT: eyes are clear and none icteric LUNGS: normal respiratory effort ABD: distended Lower extremities: no edema SKIN: nonjaundiced Neuro: gross
[2022-01-19] MEDS: CEFDINIR 300 MG CAPSULE PO (20:58)
[2022-01-20] VITALS (9 sets, daily range): BP systolic 126–141; BP diastolic 51–78; PULSE 69–73; RESP 16–20; TEMP 35.9–36.3; O2SAT 90–98
[2022-01-20] MEDS: ALBUTEROL SULFATE NEB 2.5 MG/3 ML INH INHALATION ×2 (03:00→07:41)
--- NOTE | 2022-01-20 05:06 | PC.NURSE ---
This patient, Catherine Gagnon, was transferred to [[id number] ] on 01/20/22 at 0506. Personal belongings sent with patient. Report given to [ez doll ]. Appropriate documentation sent with patient.
--- NOTE | 2022-01-20 05:16 | PC.NURSE ---
This patient, Catherine Gagnon, was received from [ IMU] on 01/20/22 at 0505. Patient/family oriented to unit policies and routines
[2022-01-20 05:39] LABS: Hematocrit 34.4 % (37.0-47.0); Hemoglobin 11.5 g/dL (12.0-15.0); Immature Platelet Fraction Pct 9.5 % (0.9-11.2); Mean Corpuscular HGB Conc 33.4 g/dl (32-36); Mean Corpuscular Hemoglobin 31.8 pg (26-34); Mean Platelet Volume 11.3 fl (7.4-10.4); Platelet Count Result 143 k/mm3 (150-375); Red Blood Count 3.62 M/mm3 (4.2-5.4); Red Cell Distribution Width 13.5 % (11.5-14.5); White Blood Count 13.9 K/mm3 (4.5-10.0)
[2022-01-20 05:45] LABS: Alanine Aminotransferase 22 U/L (6-35); Alkaline Phosphatase 106 U/L (38-126); Anion Gap 9 mmol/L (8-16); Aspartate Amino Transferase 29 U/L (14-36); Bilirubin,Total 0.9 mg/dL (0.2-1.3); Blood Urea Nitrogen 10 mg/dL (7-17); Calcium 8.4 mg/dL (8.4-10.2); Carbon Dioxide 24 mmol/L (22-30); Chloride 105 mmol/L (98-107); Estimated CRCL calculation 80 ml/min; Estimated Glomerular Filt Rate > 60; Glucose 79 mg/dL (65-110); Magnesium 1.9 mg/dL (1.6-2.3); Potassium 3.2 mmol/L (3.4-5.0); Sodium 138 mmol/L (137-145)
[2022-01-20] MEDS: LEVOTHYROXINE SODIUM 100 MCG TABLET PO (06:26)
--- NOTE | 2022-01-20 07:11 | WPDUROPN2 ---
Progress Note: A&P Assessment and Plan (1) Septic shock: Code(s): A41.9 - Sepsis, unspecified organism; R65.21 - Severe sepsis with septic shock Status: Acute (2) Right ureteral stone: Code(s): N20.1 - Calculus of ureter Status: Acute Assessment and Plan: Progress noted KUB today to check right ureteral stone position Somewhere, cynq-plq-vesa as outpatient, will need right ESWL Subjective Subjective Date/Time Seen: 01/20/22 07:11 Progress noted Tolerating stent well Review of Systems Cardiovascular: Cardiovascular: Denies chest pain, Denies lightheadedness, Denies palpitations and Denies dyspnea Respiratory: Respiratory: Denies dyspnea Gastrointestinal: Gastrointestinal: Denies diarrhea, Denies nausea and Denies vomiting Genitourinary: Genitourinary: Denies hematuria and Denies dysuria Endocrine: Endocrine: Denies palpitations Exam Const: General: no acute distress Resp: Effort & Inspection: normal respiratory effort GI: Inspection: non-distended GI Palp: No abdominal tenderness and No Guarding due to palpation present (GI) Auscultation: normal bowel sounds Objective Data Vital Signs Vital Signs: Vital Signs - 24 hr 01/19/22 08:24 01/19/22 08:24 01/19/22 08:34 Temperature Pulse Rate 72 78 Respiratory Rate 18 18 Blood Pressure Pulse Oximetry 90 Oxygen Delivery Nasal Cannula Oxygen Flow Rate 1 Fraction of Inspired Oxygen 01/19/22 08:00 01/19/22 08:51 01/19/22 10:22 Temperature 97.9 F Pulse Rate 62 80 Respiratory Rate 17 Blood Pressure 137/75 Pulse Oximetry 98 93 Oxygen Delivery Room Air Oxygen Flow Rate Fraction of Inspired Oxygen 01/19/22 08:00 01/19/22 10:00 01/19/22 08:00 Temperature Pulse Rate 62 75 Respiratory Rate Blood Pressure Pulse Oximetry Oxygen Delivery Room Air Oxygen Flow Rate Fraction of Inspired Oxygen 01/19/22 12:04 01/19/22 12:00 01/19/22 14:47 Temperature 97.1 F L Pulse Rate 70 65 Respiratory Rate 18 18 Blood Pressure 138/61 Pulse Oximetry 95 Oxygen Delivery Room Air Oxygen Flow Rate Fraction of Inspired Oxygen 01/19/22 14:57 01/19/22 16:00 01/19/22 20:00 Temperature 98.1 F 97.0 F L Pulse Rate 71 71 70 Respiratory Rate 18 20 20 Blood Pressure 149/64 H 122/64 Pulse Oximetry 93 91 Oxygen Delivery Oxygen Flow Rate Fraction of Inspired Oxygen 01/19/22 20:00 01/19/22 21:07 01/19/22 20:21 Temperature Pulse Rate 69 69 69 Respiratory Rate 20 18 Blood Pressure Pulse Oximetry 91 91 Oxygen Delivery Room Air Room Air Oxygen Flow Rate Fraction of Inspired Oxygen 40 01/19/22 20:29 01/20/22 00:00 01/20/22 04:00 Temperature 97.0 F L 97.4 F L Pulse Rate 67 72 71 Respiratory Rate 18 20 18 Blood Pressure 126/52 L 127/51 L Pulse Oximetry 90 92 Oxygen Delivery Oxygen Flow Rate Fraction of Inspired Oxygen 01/20/22 03:00 01/20/22 03:10 Temperature Pulse Rate 70 71 Respiratory Rate 18 18 Blood Pressure Pulse Oximetry Oxygen Delivery Oxygen Flow Rate Fraction of Inspired Oxygen Intake/Output Intake/Output: Intake & Output 01/17/22 01/18/22 01/19/22 01/20/22 23:59 23:59 23:59 23:59 Intake Total 2455 1130 1210 120 Output Total 3200 1050 950 Balance -745 80 260 120 Meds/Results Medications: Active Medications Generic Name Dose Route Start Last Admin Trade Name Freq PRN Reason Stop Dose Admin Acetaminophen 650 mg 01/17/22 15:58 01/17/22 22:32 Acetaminophen 325 Mg Tablet PO 650 mg Q6H PRN Administration Mild Pain (1-3) or Fever Albuterol 2.5 mg 01/17/22 14:00 01/20/22 03:00 Albuterol Sulfate Neb 2.5 Mg/3 Ml Inh INHALATION 2.5 mg Q6HRT AMY Administration Buspirone HCl 2.5 mg 01/15/22 09:00 01/19/22 18:02 Buspirone Hcl 2.5 Mg Tablet PO 02/14/22 08:59 2.5 mg BID AMY Administration Buspirone HCl 5 mg 01/15/22 09:00 01/19/22 18
[2022-01-20] MEDS: OMEGA 3 POLYUNSAT FATTY ACIDS 1 GM CAP PO (09:17)
[2022-01-20] MEDS: busPIRone HCL 5 MG TABLET PO (09:17)
[2022-01-20] MEDS: CEFDINIR 300 MG CAPSULE PO (09:18)
[2022-01-20] MEDS: busPIRone HCL 2.5 MG TABLET PO (09:18)
[2022-01-20] MEDS: METOPROLOL SUCCINATE EXT REL 50 MG TABCR PO (09:18)
[2022-01-20] MEDS: ESCITALOPRAM OXALATE 10 MG TABLET 20 MG PO (09:18)
[2022-01-20] MEDS: OPTI-GEN TAB 1 TABLET PO (09:18)
[2022-01-20] MEDS: POTASSIUM CHLORIDE 20 MEQ PACKET (FOR LIQUID) 40 MEQ PO (09:26)
--- NOTE | 2022-01-20 11:14 | PCNWS ---
Weekly nutritional screen. Patient is tolerating current diet of minced and moist level 5 with nectar thick liquids. Adequate intake at 50-100% of meals per nursing. Pt reports good appetite and intake. No weight loss reported. No nutritional needs at this time.
--- NOTE | 2022-01-20 11:58 | PM.DS ---
DS: Admitting Diagnosis Discharge Date January 20, 2022 Admitting Diagnosis UTI, pyelo, stone DS: Discharge Diagnosis Discharge Diagnosis (1) Septic shock: Code(s): A41.9 - Sepsis, unspecified organism; R65.21 - Severe sepsis with septic shock Status: Inactive Assessment and Plan: sepsis present on admission -now resolved likely secondary to pyelonephritis with stone. Status post is stent placement. Will need follow-up with Urology Transitioned to oral antibiotics, Dc Whitt (2) Pneumonia: Code(s): J18.9 - Pneumonia, unspecified organism Status: Acute Assessment and Plan: Oral Omnicef (3) Ureterolithiasis: Code(s): N20.1 - Calculus of ureter Status: Acute Assessment and Plan: stent placed (4) Acute kidney injury: Code(s): N17.9 - Acute kidney failure, unspecified Status: Acute Assessment and Plan: monitor (5) Urinary tract infection: Code(s): N39.0 - Urinary tract infection, site not specified Status: Acute Assessment and Plan: IV antibiotics (6) SVT (supraventricular tachycardia): Code(s): I47.1 - Supraventricular tachycardia Status: Acute Assessment and Plan: will start home beta-arsenio. Trend troponin DS: Summary Hospital Course Hospital Course: Patient was admitted for sepsis found a UTI and stone. Patient stent placed and will need lithotripsy discharge. Needs to follow up with Urology. Otherwise patient be sent on oral antibiotics. She will be going to rehab facility Time Spent with Patient Time attestation: Total time spent providing and/or coordinating discharge services: Exam Narrative: elderly frail Patient is comfortable, NAD HEENT: eyes are clear and none icteric LUNGS: normal respiratory effort ABD: distended Lower extremities: no edema SKIN: nonjaundiced Neuro: grossly intact somnolent. Const: General: uncomfortable Other: Elderly female lying supine in bed at this time in Trendelenburg position, appears uncomfortable. HENMT: Mouth: Yes dry mucous membranes Eyes: General: appearance normal, both eyes and all related structures Sclera: sclerae normal Pupils: Equal, round and reactive pupils present EOM: EOM not intact bilaterally (Does not follow commands) Neck: Neck: supple and no JVD Lymphatic: lymphadenopathy not noted Chest: Other: Does not appear tender to palpation. Resp: Effort & Inspection: abnormal respiratory effort (Decreased, does not follow commands well.) Auscultation: diminished lung sounds bilateral throughout (Secondary to decreased effort.) Other: Patient is noted to be tachypneic breathing in the 30s. Cardio: Rate: regular rate Rhythm: regular rhythm Heart sounds: no gallops, no murmurs and no rubs GI: Inspection: non-distended Auscultation: normal bowel sounds Skin: General skin exam: normal color and no rashes or lesions noted Neuro: Cranial nerves: Yes Equal, round and reactive pupils present Other: At baseline confused. Patient is currently alert and oriented to self only. She has no apparent focal deficits. She is noted to be moving bilateral upper and bilateral lower extremities well without any deficits. Extrem: General: normal to inspection, no edema and no pedal edema Psych: Other: Unable to accurately assess as pt. is confused. DS: Data Data Completed and Pending Labs on day of discharge: Labs from last 24 hours 01/20/22 01/20/22 04:16 04:16 WBC 13.9 H RBC 3.62 L Hgb 11.5 L Hct 34.4 L MCV 95.0 MCH 31.8 MCHC 33.4 RDW 13.5 Plt Count 143 L MPV 11.3 H % Immature Plt Fraction 9.5 Sodium 138 Potassium 3.2 L Chloride 105 Carbon Dioxide 24 Anion Gap 9 BUN 10 Creatinine 0.50 L Estim Creat Clear Calc 80 Estimated GFR > 60 Glucose 79 Calcium 8.4 Magnesium 1.9 Total Bilirubin 0.9 AST 29 ALT 22 Alkaline Phosphatase 106 Total Pro
--- NOTE | 2022-01-20 13:23 | PC.NURSE ---
Patient was found walking the halls unassisted. Patient and PCT were preparing for discharge prior to mobility. RN and Charge Nurse witnessed the patient hold on to the wall railing and gradually sit herself down to the floor by 301. Patient was helped back to patient's room by Rosa GEORGES and vocational training director. Vitals were WNL. No injuries or complaints with patient.
--- NOTE | 2022-01-20 14:19 | PC.NURSE ---
Patient was found walking the halls unassisted. Patient and PCT were preparing for discharge prior to hallway mobility. Pt was sitting in a chair without the alarm. The alarm was on another chair. RN and Charge Nurse witnessed the patient hold on to the wall railing and gradually squat herself down to the floor by 301 around 1300. Patient complained of feeling weak. Patient was helped back to patient's room by Rosa GEORGES and sales and training specialist. Vitals were WNL. No injuries or complaints with patient.
== END 2022-01-20 13:30 | DRG 853 ==
LOC: ANHED 10:34 → ANHSURGERY 15:33 → ANHICU 17:10 → ANHIMU 01-18 06:11 → ANH3MEDSUR 01-20 11:58 → ANHIMU 01-23 08:55
PROVIDERS: Internal Medicine; Nurse Practitioner Adult Health; Urology; Admitting Provider Family Medicine; Emergency Provider General Practice; PCP Family Medicine; Visit Provider Chiropractor
PROC: 0T768DZ Dilation of Right Ureter with Intraluminal Device, Via Natural or Artificial Opening Endoscopic (ICD-10-PCS; CPT 52352; principal; 2022-01-14 15:00)
DX: A41.9 Sepsis, unspecified organism (principal); R65.21 Severe sepsis with septic shock; J18.9 Pneumonia, unspecified organism; N13.6 Pyonephrosis; N17.9 Acute kidney failure, unspecified; I47.1 Supraventricular tachycardia; Z20.822 Contact with and (suspected) exposure to COVID-19; F03.90 Unspecified dementia, unspecified severity, without behavioral disturbance, psychotic disturbance, mood disturbance, and anxiety; I10 Essential (primary) hypertension; E03.9 Hypothyroidism, unspecified; K76.0 Fatty (change of) liver, not elsewhere classified; D69.59 Other secondary thrombocytopenia; Z90.49 Acquired absence of other specified parts of digestive tract
CPT/HCPCS: 36415; 36600; 70450; 71045; 74018; 74176; 74420; 80048; 80053; 80202; 81001; 82550; 82805; 82948; 83605; 83690; 83735; 83880; 84100; 84132; 84484; 85025; 85027; 85055; 85610; 85730; 86140; 87040; 87086; 87449; 87899; 92610; 93005; 93306; 94002; 94003; 94640; 96365; 96367; 96375; 97161; 97166; 97530; 97535; 99291; A9270; C1751; C1769; C1887; C1894; C2617; C9113; C9803; J0131; J0282; J0456; J0696; J0743; J1170; J1644; J1940; J2060; J2250; J2370; J2405; J2704; J3370; J3475; J3480; J7030; J7050; J7070; P9047; U0003; U0005

== ENCOUNTER 2022-01-20 14:25 | Inpatient (IN) | payer MEDICARE, MEDICAID, SELFPAY ==
[2022-01-20 14:59] VITALS: BMI 28.9
[2022-01-20 16:00] VITALS: BP 139/67; PULSE 69; RESP 18; TEMP 36.2; O2SAT 94
--- NOTE | 2022-01-20 18:39 | PC.NURSE ---
Patient and personal belongings moved to room 207. Patient's family aware that room has been changed for closer monitoring.
[2022-01-20] MEDS: LORazepam (*CRX) 0.5 MG TABLET PO (20:09)
[2022-01-20] MEDS: CEFDINIR 300 MG CAPSULE PO (20:09)
[2022-01-20] MEDS: buPROPion HCL 75 MG TABLET PO (20:13)
[2022-01-20] MEDS: traZODone HCL 50 MG TABLET PO (20:14)
[2022-01-21] VITALS: BP 141/65; PULSE 72; RESP 20; TEMP 36.1; O2SAT 96
--- NOTE | 2022-01-21 00:18 | PC.NURSE ---
Patient has been getting up by herself confused frequently, does not know where she is or why, bed alarm set, patient is very fast and gets up per self quickly.
--- NOTE | 2022-01-21 03:28 | PC.NURSE ---
Patient has been up all night, has been getting up per self and wandering, alarms intact.
--- NOTE | 2022-01-21 04:51 | PC.NURSE ---
Patient has been up all night, confused and wanders, requires one to one assist, tried to call family, left message to call back.
[2022-01-21 05:09] LABS: Hematocrit 35.3 % (35.0-42.0); Hemoglobin 12.1 g/dL (11.7-13.8); Mean Corpuscular HGB Conc 34.3 g/dL (32.0-36.0); Mean Corpuscular Hemoglobin 32.8 pg (27.0-31.0); Mean Corpuscular Volume 95.7 fL (78.0-102.0); Mean Platelet Volume 10.5 fl (9.2-11.8); Platelet Count Result 160 K/mm3 (150-420); Red Blood Count 3.69 M/mm3 (4.20-5.40); Red Cell Distribution Width 13.1 % (11.6-14.4); White Blood Count 17.9 K/mm3 (4.8-10.8)
[2022-01-21 05:25] LABS: Alanine Aminotransferase 36 U/L (14-59); Albumin Level 3.8 g/dL (3.4-5.0); Alkaline Phosphatase 130 U/L (46-116); Anion Gap 11 mmol/L (8-16); Aspartate Amino Transferase 30 U/L (15-37); Blood Urea Nitrogen 7 mg/dL (7-18); Calcium 9.1 mg/dL (8.5-10.1); Carbon Dioxide 26 mmol/L (21-32); Chloride 104 mmol/L (98-108); Estimated CRCL calculation 58 ml/min; Estimated Glomerular Filt Rate > 60; Glucose 96 mg/dL (70-99); Osmolality Calculated 290 mOsm/kg (285-295); Potassium 3.5 mmol/L (3.5-5.1); Sodium 141 mmol/L (136-145); Total Protein 6.1 g/dL (6.4-8.2)
--- NOTE | 2022-01-21 05:32 | PC.NURSE ---
Patient up and confused, also seeing things that aren't there. Alarm intact.
[2022-01-21 05:40] VITALS: BP 141/65; PULSE 96; RESP 20; TEMP 36.1; O2SAT 96
--- NOTE | 2022-01-21 05:43 | PC.NURSE ---
Patient remains confused and disoriented, helped back to bed, bp 168/72, p 75, spo2 96 t 97.6.
[2022-01-21] MEDS: LEVOTHYROXINE SODIUM 100 MCG TABLET PO (06:11)
[2022-01-21 08:00] VITALS: BP 148/80; PULSE 87; RESP 20; TEMP 36.2; O2SAT 98
[2022-01-21] MEDS: ESCITALOPRAM OXALATE 10 MG TABLET 20 MG PO (08:56)
[2022-01-21] MEDS: PANTOPRAZOLE 40 MG TABLET PO (08:56)
[2022-01-21] MEDS: buPROPion HCL 75 MG TABLET PO ×2 (08:56→20:42)
[2022-01-21 08:57] VITALS: PULSE 78
[2022-01-21] MEDS: METOPROLOL SUCCINATE EXT REL 50 MG TABCR PO (08:57)
[2022-01-21] MEDS: OPTI-GEN TAB 1 TABLET PO (08:57)
[2022-01-21] MEDS: CEFDINIR 300 MG CAPSULE PO ×2 (08:58→20:42)
--- NOTE | 2022-01-21 10:56 | PM.IMHP ---
H&P: HPI History of Present Illness Date/Time: 01/21/22 10:56 Chief Complaint: This is a 76-year-old female that presented to our facility for swing bed. Patient was previously at [facility] and treated for hypotension and septic shock due to pyelonephritis secondary to obstructive right proximal ureteral stone. Patient was treated with imipenem and vancomycin. Urology recommended that patient follow-up as outpatient and will need a right eswl. Patient is a poor historian patient's bsytqsgo-dq-bmq at bedside. Patient remains very confused and unable to follow directions. According to her flhhhvlj-uf-knl this is not her baseline she had bouts of confusion before hospital admission. Patient is alert to name only. Patient admitted in swing bed for rehabilitation due to decreased balance decreased mobility in severe limited function endurant and/or mobility. Received report that patient fell in the a.m. no injuries noted patient denies any injury does not appear to be in any pain able to move all extremities. No abrasions or bruising or apparent injury to the head. she does have old bruising and abrasion from a previous fall. According to her xajpuiri-bf-bct she fell while she was at assisted living. Did speak with her cgosyoap-kl-rrd concerning placement. Informed her that due to her mental status she will probably not be able to return back to assisted living and that they should seek mcfp placed. Tilxgfex-md-cdi agrees. Patient does have bad sundowners. Review of Systems Review of Systems: ROS unobtainable: Yes unobtainable due to mental status PMFSH Past Medical History Medical History Dementia Diverticulitis Fatty liver Herpes zoster Hypertension Hypothyroidism Septic shock Syncope, vasovagal Surgical History Surgical History Hx of cholecystectomy Social History Social History Smoking status: Never smoker Alcohol intake: never Substance use: never Spiritual care concerns: No Meds Home Medications and Allergies Home Medications Medication Instructions Recorded Confirmed Type buspirone 7.5 mg tablet 7.5 mg PO BID 01/14/22 01/20/22 History escitalopram oxalate 20 mg tablet 20 mg PO DAILY 01/14/22 01/20/22 History levothyroxine 100 mcg tablet 100 mcg PO DAILY 01/14/22 01/20/22 History metoprolol succinate 50 mg 50 mg PO DAILY 01/14/22 01/20/22 History tablet,extended release 24 hr lkkfjeli-ksp-equck acid 500 1 tablet PO DAILY 01/14/22 01/20/22 History mcg-lycopene 300 mcg-lutein 250 mcg tablet ([facility]) omega-3 fatty acids 1 cap PO DAILY 01/14/22 01/20/22 History omeprazole 20 mg capsule,delayed 20 mg PO DAILY 01/14/22 01/20/22 History release cefdinir 300 mg capsule 300 mg PO Q12H #10 caps 01/20/22 01/20/22 Rx Allergies Allergy/AdvReac Type Severity Reaction Status Date / Time meperidine Allergy Severe BP DROP Verified 01/14/22 12:00 HYPER-REACTIVE TO ALL Allergy Severe Unknown Uncoded 01/14/22 12:00 MEDS--EXACERBATED AFFECTS Vital Signs Vital Signs - 24 hr 01/20/22 16:00 01/21/22 00:00 01/21/22 05:40 Temperature 97.2 F L 96.9 F L 96.9 F L Pulse Rate 69 72 96 Respiratory Rate 18 20 20 Blood Pressure 139/67 141/65 H 141/65 H Pulse Oximetry 94 96 96 Oxygen Delivery Room Air Room Air Room Air 01/21/22 08:00 01/21/22 08:57 Temperature 97.2 F L Pulse Rate 87 78 Respiratory Rate 20 Blood Pressure 148/80 H Pulse Oximetry 98 Oxygen Delivery Room Air Exam Narrative: GENERAL: confused well-developed patient, in no apparent distress. HEAD: normocephalic, atraumatic. EYES: PERRL. Sclera clear/white. Vision is grossly intact. EARS: External ears normal, auditory canals clear and without drainage, TMs normal without perforation. Hearing grossly intact. NOSE: External nose n
--- NOTE | 2022-01-21 14:29 | PC.NURSE ---
Pt has been pacing and walking in her room and in the hallway with the RN. Her gait is steady. She is not using a walker.
[2022-01-21 16:00] VITALS: BP 142/69; PULSE 77; RESP 16; TEMP 36.1; O2SAT 97
--- NOTE | 2022-01-21 19:15 | PC.NURSE ---
Patient ate 50% of her supper meal and drank 540ml. Patient fed self.
[2022-01-21] MEDS: traZODone HCL 50 MG TABLET 150 MG PO (20:42)
[2022-01-21] MEDS: diphenhydrAMINE HCl CAP 25 MG CAPSULE PO (20:42)
[2022-01-21 23:50] VITALS: BP 145/76; PULSE 72; RESP 18; TEMP 36.6; O2SAT 96
[2022-01-22] MEDS: LEVOTHYROXINE SODIUM 100 MCG TABLET PO (06:33)
[2022-01-22 08:00] VITALS: BP 142/72; PULSE 78; RESP 14; TEMP 36.8; O2SAT 97
[2022-01-22 16:30] VITALS: BP 137/74; PULSE 67; RESP 16; TEMP 36.1; O2SAT 93
[2022-01-22] MEDS: buPROPion HCL 75 MG TABLET PO (20:53)
[2022-01-22] MEDS: diphenhydrAMINE HCl CAP 25 MG CAPSULE PO (20:53)
[2022-01-22] MEDS: CEFDINIR 300 MG CAPSULE PO (20:53)
[2022-01-22 23:41] VITALS: BP 148/52; PULSE 65; RESP 18; TEMP 36.2; O2SAT 97
[2022-01-23] MEDS: LEVOTHYROXINE SODIUM 100 MCG TABLET PO (06:16)
[2022-01-23 08:00] VITALS: BP 118/70; PULSE 76; RESP 16; TEMP 36.4; O2SAT 96
[2022-01-23] MEDS: ESCITALOPRAM OXALATE 10 MG TABLET 20 MG PO (08:56)
[2022-01-23] MEDS: OPTI-GEN TAB 1 TABLET PO (08:56)
[2022-01-23] MEDS: CEFDINIR 300 MG CAPSULE PO ×2 (08:56→20:43)
[2022-01-23 08:57] VITALS: PULSE 76
[2022-01-23] MEDS: PANTOPRAZOLE 40 MG TABLET PO (08:57)
[2022-01-23] MEDS: buPROPion HCL 75 MG TABLET PO ×2 (08:57→20:42)
[2022-01-23] MEDS: METOPROLOL SUCCINATE EXT REL 50 MG TABCR PO (08:57)
[2022-01-23 16:00] VITALS: BP 128/74; PULSE 76; RESP 14; TEMP 37; O2SAT 96
[2022-01-23 19:20] VITALS: PULSE 76; RESP 14; O2SAT 96
[2022-01-23] MEDS: diphenhydrAMINE HCl CAP 25 MG CAPSULE PO (20:43)
[2022-01-23] MEDS: traZODone HCL 50 MG TABLET 100 MG PO (20:43)
[2022-01-23] MEDS: ACETAMINOPHEN 325 MG TABLET 650 MG PO (20:44)
[2022-01-24] VITALS: BP 149/67; PULSE 75; RESP 18; TEMP 36.1; O2SAT 97
[2022-01-24] MEDS: LEVOTHYROXINE SODIUM 100 MCG TABLET PO (05:59)
[2022-01-24 08:00] VITALS: BP 100/58; PULSE 68; RESP 18; TEMP 36.1; O2SAT 95
[2022-01-24] MEDS: buPROPion HCL 75 MG TABLET PO ×2 (08:23→20:12)
[2022-01-24 08:24] VITALS: PULSE 78
[2022-01-24] MEDS: PANTOPRAZOLE 40 MG TABLET PO (08:24)
[2022-01-24] MEDS: OPTI-GEN TAB 1 TABLET PO (08:24)
[2022-01-24] MEDS: ESCITALOPRAM OXALATE 10 MG TABLET 20 MG PO (08:24)
[2022-01-24] MEDS: METOPROLOL SUCCINATE EXT REL 50 MG TABCR PO (08:24)
[2022-01-24] MEDS: CEFDINIR 300 MG CAPSULE PO ×2 (08:24→20:12)
[2022-01-24 09:29] LABS: Hematocrit 37.4 % (35.0-42.0); Hemoglobin 12.2 g/dL (11.7-13.8); Mean Corpuscular HGB Conc 32.6 g/dL (32.0-36.0); Mean Corpuscular Hemoglobin 31.7 pg (27.0-31.0); Mean Corpuscular Volume 97.1 fL (78.0-102.0); Mean Platelet Volume 10.6 fl (9.2-11.8); Platelet Count Result 208 K/mm3 (150-420); Red Blood Count 3.85 M/mm3 (4.20-5.40); Red Cell Distribution Width 13.5 % (11.6-14.4); White Blood Count 10.1 K/mm3 (4.8-10.8)
[2022-01-24 15:37] VITALS: BP 127/75; PULSE 69; RESP 16; TEMP 36.6; O2SAT 98
--- NOTE | 2022-01-24 16:37 | PM.EVENT ---
Event Note Event Note Event Note: patient tsh elevated changed synthyroid from 100 >125. Will need a repeat tsh in 6 weeks
[2022-01-24] MEDS: diphenhydrAMINE HCl CAP 25 MG CAPSULE PO (20:13)
[2022-01-24] MEDS: LORazepam (*CRX) 0.5 MG TABLET PO (20:14)
[2022-01-24] MEDS: traZODone HCL 50 MG TABLET 100 MG PO (20:14)
[2022-01-25] VITALS: BP 129/74; PULSE 65; TEMP 35.8; O2SAT 97
--- NOTE | 2022-01-25 04:31 | PC.NURSE ---
Unable to chart goals due to not being able to pull them up, charted with charge nurse.
[2022-01-25] MEDS: LEVOTHYROXINE SODIUM 100 MCG, LEVOTHYROXINE SODIUM 25 MCG 125 MCG PO (06:05)
[2022-01-25 08:00] VITALS: BP 136/66; PULSE 61; RESP 16; TEMP 36.4; O2SAT 95
[2022-01-25 09:13] VITALS: PULSE 61
[2022-01-25] MEDS: METOPROLOL SUCCINATE EXT REL 50 MG TABCR PO (09:13)
[2022-01-25] MEDS: OPTI-GEN TAB 1 TABLET PO (09:13)
[2022-01-25] MEDS: ESCITALOPRAM OXALATE 10 MG TABLET 20 MG PO (09:13)
[2022-01-25] MEDS: buPROPion HCL 75 MG TABLET PO ×2 (09:14→20:41)
[2022-01-25] MEDS: CEFDINIR 300 MG CAPSULE PO ×2 (09:14→20:42)
[2022-01-25] MEDS: PANTOPRAZOLE 40 MG TABLET PO (09:14)
[2022-01-25 16:00] VITALS: BP 128/74; PULSE 74; RESP 16; TEMP 36.2; O2SAT 97
[2022-01-25] MEDS: diphenhydrAMINE HCl CAP 25 MG CAPSULE PO (20:42)
[2022-01-25] MEDS: traZODone HCL 50 MG TABLET 100 MG PO (20:42)
[2022-01-25 23:03] VITALS: BP 141/62; PULSE 71; RESP 16; TEMP 36.6; O2SAT 97
[2022-01-26] MEDS: LEVOTHYROXINE SODIUM 100 MCG, LEVOTHYROXINE SODIUM 25 MCG 125 MCG PO (06:52)
[2022-01-26 07:40] VITALS: BP 143/72; PULSE 71; RESP 16; TEMP 36.1; O2SAT 97
[2022-01-26 09:18] VITALS: PULSE 71
[2022-01-26] MEDS: CEFDINIR 300 MG CAPSULE PO ×2 (09:18→20:48)
[2022-01-26] MEDS: OPTI-GEN TAB 1 TABLET PO (09:18)
[2022-01-26] MEDS: PANTOPRAZOLE 40 MG TABLET PO (09:18)
[2022-01-26] MEDS: METOPROLOL SUCCINATE EXT REL 50 MG TABCR PO (09:18)
[2022-01-26] MEDS: ESCITALOPRAM OXALATE 10 MG TABLET 20 MG PO (09:19)
[2022-01-26] MEDS: buPROPion HCL 75 MG TABLET PO ×2 (09:20→20:48)
[2022-01-26 16:25] VITALS: BP 142/78; PULSE 64; RESP 18; TEMP 36.6; O2SAT 98
[2022-01-26] MEDS: diphenhydrAMINE HCl CAP 25 MG CAPSULE PO (20:48)
[2022-01-26] MEDS: traZODone HCL 50 MG TABLET 100 MG PO (20:49)
--- NOTE | 2022-01-26 22:19 | PC.NURSE ---
Pt verbalized she was ready for bed and feeling tired. This RN offered to take the pt to the bathroom prior to laying in bed and the pt stated No I'm fine, thank you. Pt then ambulated from the chair to the bed w/standby assist needing no assistance. Once pt was lying in bed this RN activated the bed alarm and placed the call light within reach. Side railsx3
[2022-01-26 23:04] VITALS: BP 120/72; PULSE 70; RESP 15; TEMP 36.6; O2SAT 97
[2022-01-27] MEDS: LEVOTHYROXINE SODIUM 100 MCG, LEVOTHYROXINE SODIUM 25 MCG 125 MCG PO (06:45)
--- NOTE | 2022-01-27 07:47 | PM.DS ---
DS: Admitting Diagnosis Discharge Date 01/27/2022 Admitting Diagnosis Rehab, Weakness, Fall, SVT , Sepsis DS: Discharge Diagnosis Discharge Diagnosis (1) SVT (supraventricular tachycardia): Code(s): I47.1 - Supraventricular tachycardia Status: Acute Assessment and Plan: resolved (2) Dementia: Code(s): F03.90 - Unspecified dementia without behavioral disturbance Status: Acute Assessment and Plan: per vlzcxdpt-yk-hqu dementia with Alzheimer's (3) Pyelonephritis: Code(s): N12 - Tubulo-interstitial nephritis, not specified as acute or chronic Status: Acute Assessment and Plan: Treated with imipenem and vancomycin course completed Pyelonephritis due to stone Will need to follow-up with urology on discharge (4) Acute kidney injury: Code(s): N17.9 - Acute kidney failure, unspecified Status: Acute Assessment and Plan: resolved (5) Hypothyroidism: Code(s): E03.9 - Hypothyroidism, unspecified Status: Acute Assessment and Plan: Continue levothyroxine TSH pending (6) Urinary tract infection: Code(s): N39.0 - Urinary tract infection, site not specified Status: Acute Assessment and Plan: Treated with imipenem and vancomycin course completed Urine culture no growth Will continue antibiotic per previous hospital due to pyelonephritis with stone and sepsis (7) Pneumonia: Code(s): J18.9 - Pneumonia, unspecified organism Status: Acute Assessment and Plan: Continue cefdinir x10 days Chest x-ray on 725 indicate pneumonia DS: Summary Hospital Course Reason for hospitalization: SNF, REHAB, SVT Hospital Course: This is a 76-year-old female that presented to our facility for swing bed. Patient cognition is limited by dementia and to is not able to maintain what is being taught. Patient has lack of aware of danger and has sundowner. Patient continues to wander and she is able to ambulate without difficulties but like previously mention she is unable to identify dangerous situation. She has a PMH of Hypotension, Septic shock Ureteral Stones and obstruction, SVT and thrombocytopenia. Patient is going to a [facility] as she needs 24 hours supervision due to sundowner. Patient is strong to get up just needs to be able to be kept in a safe environment . Patient will need to follow up with Urology for the ureteral Stones. Time Spent with Patient Time attestation: Total time spent providing and/or coordinating discharge services: Exam Narrative: GENERAL: confused well-developed patient, in no apparent distress. HEAD: normocephalic, atraumatic. EYES: PERRL. Sclera clear/white. Vision is grossly intact. EARS: External ears normal, auditory canals clear and without drainage, TMs normal without perforation. Hearing grossly intact. NOSE: External nose normal with no obvious nasal discharge, nares without redness, no rhinorrhea. THROAT: Mucous membranes moist, posterior pharynx clear. NECK: Neck supple, non-tender without lymphadenopathy, masses or thyromegaly. CARDIOVASCULAR: Regular rate and rhythm without murmurs, gallops, or rubs. RESPIRATORY: Clear to auscultation. Breath sounds equal bilaterally. No wheezes, rales, or rhonchi. GASTROINTESTINAL: Abdomen soft, non-tender, nondistended. Bowel sounds are active. No hepato-splenomegaly, or palpable masses. No guarding. SKIN: Multiple old abrasions and bruising NEURO: awake, alert, and oriented to person, place and time. There were no obvious focal neurologic abnormalities. Steady gait EXTREMITIES: Normal range of motion. No edema. No calf tenderness. Negative Homans sign bilaterally. BACK: Nontender without deformity or crepitance. No flank tenderness. Discharge Plan Discharge Attending physician on discharge: Raymond Alba Discharging Clinician: Henry Hines Anticipated Discharge Date/Time: 01/27/22 09:00
[2022-01-27 08:00] VITALS: BP 130/74; PULSE 58; RESP 16; TEMP 36.2; O2SAT 97
[2022-01-27] MEDS: CEFDINIR 300 MG CAPSULE PO (08:39)
[2022-01-27] MEDS: buPROPion HCL 75 MG TABLET PO (08:39)
[2022-01-27 08:40] VITALS: PULSE 58
[2022-01-27] MEDS: PANTOPRAZOLE 40 MG TABLET PO (08:40)
[2022-01-27] MEDS: ESCITALOPRAM OXALATE 10 MG TABLET 20 MG PO (08:40)
[2022-01-27] MEDS: METOPROLOL SUCCINATE EXT REL 50 MG TABCR PO (08:40)
[2022-01-27] MEDS: OPTI-GEN TAB 1 TABLET PO (08:40)
--- NOTE | 2022-01-27 09:19 | PC.NURSE ---
Pt discharged to [facility]. This RN called report to Ivana GEORGES. Discharge packet faxed to facility and copy sent with pt. Pt's daughter in law verbalized understanding of instructions. RN took pt to the family car in a WC.
--- NOTE | 2022-01-30 14:20 | PC.NURSE ---
senior living nurse states they received the discharge instructions. Nurse also states they are waiting for the DNR papers and she questioned why the provider didn't continue the trazadone and benadryl.
== END 2022-01-27 09:20 | DRG 947 ==
PROVIDERS: Nurse Practitioner; Admitting Provider Internal Medicine; PCP Family Medicine; Visit Provider Internal Medicine
DX: R53.1 Weakness (principal); J18.9 Pneumonia, unspecified organism; N20.1 Calculus of ureter; N12 Tubulo-interstitial nephritis, not specified as acute or chronic; N39.0 Urinary tract infection, site not specified; I47.1 Supraventricular tachycardia; I10 Essential (primary) hypertension; E03.9 Hypothyroidism, unspecified; K57.30 Diverticulosis of large intestine without perforation or abscess without bleeding; K76.0 Fatty (change of) liver, not elsewhere classified; F03.90 Unspecified dementia, unspecified severity, without behavioral disturbance, psychotic disturbance, mood disturbance, and anxiety; Z90.49 Acquired absence of other specified parts of digestive tract
CPT/HCPCS: 36415; 80053; 84439; 84443; 85027; 92526; 92610; 97110; 97161; 97165; 97530; 97535; A9270

== ENCOUNTER 2022-02-16 10:04 | Emergency (ER) | payer MEDICARE, MEDICAID, SELFPAY ==
--- NOTE | ~2022-02-16 | CT_ITS ---
EXAMINATION: CT brain wo con DATE: 02/16/2022 10:39 INDICATION: Head injury. TECHNIQUE: Computed tomography (CT) of the head was performed without intravenous contrast. The mA wa s adjusted according to patient size. Iterative reconstruction technique was employed. The dose-lengt h product was 605.33 mGy-cm. COMPARISON: Head CT 01/14/2022 FINDINGS: There are scattered areas of low attenuation in the cerebral white matter, which is within normal limits for the patient's age. There is no intracranial hemorrhage, acute infarction, or abnorm al intracranial mass lesion. The ventricles are normal in size. The orbits are normal. There are frac tures of the nasal bones and nasal septum. The mastoid air cells are normal. There is cerumen in righ t external auditory canal. There is left periorbital soft tissue swelling. IMPRESSION: 1. Normal aging brain. 2. Fractures of the nasal bones and nasal septum. Reviewed, dictated and finalized at location A.
--- NOTE | ~2022-02-16 | CT_ITS ---
EXAMINATION: CT facial bones wo con DATE: 02/16/2022 10:40 INDICATION: Head injury. TECHNIQUE: Computed tomography (CT) of the facial bones and maxillofacial region was performed withou t intravenous contrast. Automated exposure control and iterative reconstruction technique were employ ed. The dose-length product was 433.71 mGy-cm. COMPARISON: Head CT 01/14/2022 FINDINGS: There is left periorbital soft tissue swelling. The orbits are normal. There is rightward d eviation of the nasal septum. There are displaced fractures of the nasal bones and nasal septum. Ther e is mild mucosal thickening in the paranasal sinuses. There is cerumen in right external auditory ca nal. There is severe cervical spondylosis. IMPRESSION: 1. Fractures of the nasal bones and nasal septum. Reviewed, dictated and finalized at location A.
[2022-02-16 10:13] VITALS: BP 103/80; PULSE 79; RESP 20; TEMP 36.1; O2SAT 98
[2022-02-16 10:14] VITALS: BP 103/80; PULSE 80; RESP 17; TEMP 36.1; O2SAT 97
[2022-02-16 10:57] LABS: Add Urine Microscopic? YES; Appearance Urine Cloudy (Clear); Bilirubin Urine Negative (Negative); Blood Urine 3+ (Negative); Color Urine Yellow (Yellow); Glucose Urine UA Negative (Negative); Ketones Urine Negative (Negative); Leukocyte Esterase Ur 3+ (Negative); Nitrate Urine Positive (Negative); Protein Urine 3+ (Negative); Urobilinogen Urine 0.2 mg/dL (0.2-1.0); pH Urine 6.5 (5.0-8.0)
[2022-02-16 11:02] LABS: Bacteria Urine 3+ /hpf; Squamous Epithelial Cell Urine Few /hpf (Few); WBC Urine 31-50 /hpf (0-3)
--- NOTE | 2022-02-16 11:10 | ED.FALL ---
HPI - Fall General Chief Complaint: Fall Stated Complaint: AMBULANCE Source: patient, family and EMS Mode of arrival: wheelchair Limitations: no limitations and physical limitation History of Present Illness HPI Narrative: this is a 76-year-old female from [facility] that presents after she had a fall earlier today from a standing position striking the left side of her forehead and nose causing bleeding and no loss of consciousness, the patient does have a history of urinary stones and has stent placed was in the intensive care unit and [facility] approximately 2 weeks ago and was treated for urosepsis. Currently the patient is afebrile response to verbal stimuli is alert oriented x2 with some no headache no blurry vision currently no nose bleed. denies any neck pain or neck stiffness, the patient is under palliative care MD complaint: fall Onset (ago): hour(s) Fall from: standing and wheelchair Fall witnessed: yes, by living facility staff Place fall occurred: [facility] Loss of consciousness: none Prolonged down time: no Related Data Home Medications Medication Instructions Recorded Confirmed escitalopram oxalate 20 mg tablet 20 mg PO DAILY 01/14/22 02/16/22 metoprolol succinate 50 mg 50 mg PO DAILY 01/14/22 02/16/22 tablet,extended release 24 hr ijacrvfr-wvr-dtncw acid 500 1 tablet PO DAILY 01/14/22 02/16/22 mcg-lycopene 300 mcg-lutein 250 mcg tablet ([facility]) omega-3 fatty acids 1 cap PO DAILY 01/14/22 02/16/22 omeprazole 20 mg capsule,delayed 20 mg PO DAILY 01/14/22 02/16/22 release Allergies Allergy/AdvReac Type Severity Reaction Status Date / Time meperidine Allergy Severe BP DROP Verified 02/16/22 10:20 HYPER-REACTIVE TO ALL Allergy Severe Unknown Uncoded 02/16/22 10:20 MEDS--EXACERBATED AFFECTS Review of Systems Review of Systems: All systems reviewed & are unremarkable except as noted in HPI and below PMFSH Past Medical History Medical History Dementia Diverticulitis Fatty liver Herpes zoster Hypertension Hypothyroidism Septic shock Syncope, vasovagal Surgical History Surgical History Hx of cholecystectomy Social History Social History Smoking status: Never smoker Alcohol intake: never Substance use: never Spiritual care concerns: No Exam Const: General: no acute distress Nutritional Appearance: well nourished Limitations: no limitations HENMT: Head: normal to inspection Face and sinus: sinus tenderness Other: As swelling and tenderness the bridge of the nose with currently no bleeding Eyes: Conjunctivae: conjunctivae normal EOM: EOMs intact bilaterally Neck: Neck: normal visual inspection Chest: Chest palpation & inspection: normal inspection of the chest Resp: Effort & Inspection: normal respiratory effort Cardio: Rate: regular rate Rhythm: regular rhythm GI: Auscultation: normal bowel sounds Rectal Exam: normal sphincter tone Urinary Catheter: Urinary Catheter: patent and draining Back/Spine/Pelvis: Back: no CVA tenderness Skin: General skin exam: normal color Rashes: no rashes Wounds: wounds noted Neuro: General: moves all extremities, no meningeal signs and no focal motor deficits Cranial nerves: Yes Nystagmus not present Speech: normal speech Extrem: General: normal to inspection, no clubbing, cyanosis or edema and no pedal edema Psych: Mental Status: mental status grossly normal Affect: normal affect Course Course Emergency Course: patient presented with a nasal clamp, nasal clamp was removed currently no bleeding head CT and facial bone CT reviewed with patient and family it show fracture of her nasal bones and the UA showed that she had a urinary tract infection and patient received 1g IM of ceftriaxone. Vital Signs Vital signs: Vit
[2022-02-16] MEDS: cefTRIAXone 1 GM, LIDOCAINE HCL 1% LOCAL INJ 2.1 ML IM (11:18)
[2022-02-16 11:31] VITALS: BP 127/80; PULSE 82; RESP 16; TEMP 36.7; O2SAT 96
== END 2022-02-16 11:34 | disposition home or self-care (01) ==
PROVIDERS: Emergency Provider Emergency Medicine; PCP Internal Medicine
DX: N39.0 Urinary tract infection, site not specified (principal); S02.2XXA Fracture of nasal bones, initial encounter for closed fracture; W18.30XA Fall on same level, unspecified, initial encounter
CPT/HCPCS: 70450; 70486; 81001; 96372; 99284; J0696